=== PATIENT | male | born 1975 | race Caucasian/White ===

== ENCOUNTER 2024-05-12 18:59 | Inpatient (IN) | payer BC, SELFPAY ==
--- NOTE | ~2024-05-12 | CT_ITS ---
EXAMINATION: CT ABDOMEN AND PELVIS WITHOUT CONTRAST CLINICAL INFORMATION: l flank pain. COMPARISON: No pertinent prior studies are available for comparison. TECHNIQUE: Multidetector volumetric imaging was performed from the superior aspect of the liver through the pubic symphysis without contrast per renal stone protocol. Sagittal and coronal reformatted images were obtained on the technologist workstation. This CT examination was performed using dose optimization techniques as appropriate, variously including the following: *Automated exposure control *Adjustment of mA and/or kV according to patient size (this includes techniques or standardized protocols for targeted exams where dose is matched to indication/reason for exam; i.e. extremities or head) *Use of iterative reconstruction technique RF of note, the patient was extremely uncooperative for the study and would not hold still. Scan was performed twice with significant motion artifact both times. DLP: 539 mGy-cm. FINDINGS: LUNG BASES: The visualized lung bases are unremarkable. LIVER, GALLBLADDER, BILIARY TREE: The non-contrast liver is normal in size, shape, and attenuation. No focal hepatic lesion or biliary ductal dilatation is present. The gallbladder is unremarkable with no evidence of radiopaque gallstones, gallbladder wall thickening, or obvious pericholecystic inflammatory changes. PANCREAS: Unremarkable. SPLEEN: Unremarkable. ADRENAL GLANDS: Unremarkable. KIDNEYS AND URETERS: The kidneys are normal in size, shape, and attenuation. No hydronephrosis, hydroureter, or perinephric stranding. No calculi. BLADDER: Unremarkable. GASTROINTESTINAL TRACT: The small and large bowel are unremarkable. The appendix is unremarkable. ABDOMINAL WALL: No significant hernia is appreciated. LYMPHOVASCULAR STRUCTURES: No lymphadenopathy. The aorta is unremarkable.. PELVIC VISCERA: Unremarkable. OSSEUS STRUCTURES: Unremarkable. CT/CT abdomen pelvis wo IV con IMPRESSION: Examination limited due to patient significant motion on 2 separate attempts at scanning. No acute intra-abdominal process seen however.
--- NOTE | ~2024-05-12 | MR_ITS ---
EXAMINATION: MR BRAIN WITHOUT AND WITH CONTRAST CLINICAL INFORMATION: Altered mental status. Encephalitis. COMPARISON: CT head from 05/12/2024. TECHNIQUE: MRI of the brain was obtained using routine sequences without and following the administration of 5.5 mL of Gadavist intravenous contrast. FINDINGS: No focal restricted diffusion is demonstrated to suggest acute or subacute cerebral ischemia. No evidence of acute or chronic hemorrhagic products on heme-sensitive imaging. Mild scattered nonspecific periventricular and deep white matter T2 FLAIR hyperintensities. The ventricles are normal in morphology and size. No abnormal mass effect. No midline shift. Normal appearance of the pituitary gland. Normal positioning of the cerebellar tonsils. Normal arterial and venous vascular flow voids are present. No abnormal contrast enhancement. Normal, homogeneous marrow signal. Mucus retention cyst within the right maxillary sinus. Mild mucosal thickening of the remaining paranasal sinuses. No signal abnormalities within the mastoids. MR/MR head/brain wo/w con IMPRESSION: 1. No acute intracranial abnormalities. No abnormal intracranial enhancement. 2. Mild nonspecific white matter changes.
--- NOTE | ~2024-05-12 | CT_ITS ---
EXAMINATION: CT HEAD WITHOUT CONTRAST CLINICAL INFORMATION: AMS. COMPARISON: None available. TECHNIQUE: Contiguous axial imaging was performed from the skull base to vertex without intravenous administration of contrast. This CT examination was performed using dose optimization techniques as appropriate, variously including the following: *Automated exposure control *Adjustment of mA and/or kV according to patient size (this includes techniques or standardized protocols for targeted exams where dose is matched to indication/reason for exam; i.e. extremities or head) *Use of iterative reconstruction technique DLP: 636 mGy-cm FINDINGS: There is no acute intra-axial, extra-axial bleed, masses or midline shift. There is no acute infarction in evolution. There is no edema. Edward to white matter differentiation is maintained normal. The lateral ventricles are symmetrical in size and configuration without enlargement. Bone windows reveal no calvarial abnormality. There is no scalp soft tissue abnormality. There is small polyp or retention cyst right maxillary sinus. CT/CT head/brain wo IV con IMPRESSION: No acute intracranial process seen.
--- NOTE | 2024-05-12 19:07 | ED_ITS ---
HPI - Abdominal Pain General Chief Complaint: Abdominal Pain Stated Complaint: ABD PAIN,HEADACHE,DISORIENTED Time Seen by Provider: 05/12/24 19:06 Source: family and EMS Mode of arrival: EMS Limitations: altered mental status History of Present Illness ED Provider: marquez TERRELL narrative: Patient is 49 years old with no significant past medical history does have chronic cramps went to work today came home was sitting on the steps of the house complaining of severe cramps and pain all over the body had difficulty in walking no nausea no vomiting no diarrhea also complaining of headache EMS found him confused no seizure activities no drugs use no alcohol use Related Data Allergies Allergy/AdvReac Type Severity Reaction Status Date / Time No Known Allergies Allergy Verified 05/12/24 19:21 Review of Systems Review of Systems Yes Unobtainable due to mental status [facility] Social History Social History Advance Directives: No Advance Directives Information Provided: No Physical Exam ED Vital Signs: Vital Signs - 24 hr 05/12/24 19:15 05/12/24 19:17 Temperature 97.6 F 97.6 F Pulse Rate 71 71 Respiratory Rate 28 H 21 H Blood Pressure 149/69 H 149/69 H Pulse Oximetry 100 100 Oxygen Delivery Method Room Air Room Air BMI result Body Mass Index 20.0 Appearance: Alert. Confused. No acute distress. Acting delirious and weird asking the same question again and again Eyes: PERRLA, No Nystagmus ENT: Pharynx normal. Oral Mucosa moist Neck: Normal inspection. Neck supple. CVS: Normal heart rate and rhythm. Pulses normal. Respiratory: No respiratory distress. Equal air entry bilateral, no wheezing/rales/rhonchi Abdomen: Soft and nontender. Bowel sounds are present, no mass palpable, no CVA tenderness Skin: Skin warm and dry. Normal skin color. Normal skin turgor. Extremities: No lower extremity edema. No calf tenderness Neuro: Alert but confused No motor deficit. No sensory deficit.No cerebellar signs , cranial nerves II-XII intact Procedures Lumbar Puncture Time Out Performed: Yes Patient Position: upright Skin Prep: Povidone-Iodine 1% Local Anesthetic: lidocaine 1% Amount of anesthesia used (mL): 5 Spinal Needle Gauge: Other (25G) Interspace Used: L4-L5 Fluid Initially Obtained: clear Complications: none Medical Decision Making Medical Decision Making [facility] Narrative: Patient with acute confusion etiology not very clear differential diagnosis includes encephalitis/meningitis/metabolic encephalopathy/substance abuse/brain tumor/kidney stone spinal tap was done and fluid was sent for evaluation prophylactic antibiotics started fluids were given Differential Diagnosis Differential Diagnoses: The differential diagnosis associated with the presentation includes Admission/Observation Consideration of admission/observation: Escalation of care including admission/observation considered Consult Healthcare Provider Management of the patient was discussed with: Hospitalist Lab Data [facility] Lab Attestation statement: I reviewed the patient's lab results. 05/12/24 19:30 05/12/24 19:30 Labs: Lab Results 05/12/24 05/12/24 05/12/24 Range/Units 19:30 20:47 23:38 WBC 14.4 H (4.8-10.8) X10*3/uL RBC 4.79 (4.60-5.80) X10*6/uL Hgb 15.1 (14.0-18.0) g/dl Hct 42.7 (42.0-52.0) % MCV 89.1 (80.0-98.0) fL MCH 31.5 (27.0-33.0) pg MCHC 35.4 (31.0-36.0) g/dl RDW 14.6 (11.0-16.0) % Plt Count 274 (160-400) X10*3/uL MPV 10.8 (9.4-12.4) fL Immature Gran % (Auto) 0.4 (0.0-0.4) % Neut % (Auto) 82.7 H (45-73) % Lymph % (Auto) 10.0 L (20-40) % Lee % (Auto) 6.3 (2-11) % Eos % (Auto) 0.1 (0-4) % Baso % (Auto) 0.5 (0-2) % Lymph # (Auto) 1.4 (1.2-4.9) X10*3/uL Lee # (Auto) 0.9 (0.1-1.2) X10*3/uL Eos # (Auto) 0.0 (0.0-0.4) X10*3/uL Baso # (Auto) 0.1 (0.0-0.2) X10*3/uL Abs Immat Gran (auto) 0.06 H (0.00-0.03) X10*3/uL Absolute Neuts (auto) 11.9 H (2.0-8.3) x10*3/uL Absolute Nucleated RBC 0.000 (0.0-0.012) X10*3/uL Nucleated RBC % (auto) 0.0 (0.0-0.2) /100WBC Sodium 136 (135-145) mmol/L Potassium 4.0 (3.3-5.1) mmol/L Chloride 103 (96-108) mmol/L Carbon Dioxide 14 L (22-29) mmol/L Anion Gap 23 H (12-20) BUN 27 H (9-16) mg/dL Creatinine 1.24 (0.5-1.4) mg/dL Estim Creat Clear Calc 58.5 Estimated GFR > 60 Random Glucose 137 H (60-115) mg/dL Lactic Acid 3.0 H* (0.5-2.0) mmol/L Lactic Acid F/U @ 2Hr 1.1 (0.5-2.0) mmol/L Calcium 11.2 H (8.4-10.2) mg/dL Magnesium 2.5 (1.6-2.6) mg/dL Total Bilirubin 0.6 (0.0-1.0) mg/dL AST 54 H (5-37) U/L ALT 58 H (0-40) U/L Alkaline Phosphatase 91 (39-117) U/L Total Creatine Kinase 1545 H (38-174) U/L C-Reactive Protein 1.06 H (< or = 0.50) mg/dL Total Protein 9.8 H (6.5-8.0) g/dL Albumin 5.5 H (3.5-5.0) g/dL Lipase 26 (8-78) U/L Urine Color Yellow Urine Appearance Clear Urine pH 5.5 (5.0-9.0) Ur Specific [place] 1.010 (1.005-1.025) Urine Protein 30 (1+) H (Neg-Trace) mg/dL Urine Glucose (UA) Negative (Negative) mg/dL Urine Ketones 40 (Negative) mg/dL Urine Blood Moderate (2+) H (Negative) Urine Nitrite Negative (Negative) Ur Leukocyte Esterase Negative (Negative) Urine RBC 0-2 (0-2) /HPF Urine WBC 0-5 (0-5) /HPF Ur Squamous Epith Cells 0-2 (0-2) /HPF Urine Bacteria None Seen (None Seen) Hyaline Casts 0-2 (0-2) /LPF Urine Opiates Screen POSITIVE H (Not Detect) Ur Buprenorphine Scrn Not Detected (Not Detect) ng/mL Ur Oxycodone Screen Not Detected (Not Detect) ng/mL Urine Methadone Screen Not Detected (Not Detect) ng/mL Urine Fentanyl Screen Not Detected (Not Detect) Ur Barbiturates Screen Not Detected (Not Detect) Ur Phencyclidine Scrn Not Detected (Not Detect) Ur Amphetamines Screen Not Detected (Not Detect) U Benzodiazepines Scrn Not Detected (Not Detect) Urine Cocaine Screen Not Detected (Not Detect) U Marijuana (THC) Screen POSITIVE H (Not Detect) Independent Interpretation I performed an independent interpretation of an: CT Scan Radiology Impression Discussion of test interpretation with radiology: I have reviewed the radiologist's reading. Medications Administered Discontinued Medications Generic Name Dose Route Start Last Admin Trade Name Freq PRN Reason Stop Dose Admin Sodium Chloride 1,000 mls @ 999 mls/hr 05/12/24 19:22 05/12/24 21:00 Ns IV 05/12/24 20:22 Infused .Q1H1M ONE Infusion Ceftriaxone Sodium 1 gm/ 50 mls @ 100 mls/hr 05/12/24 21:12 05/12/24 22:58 Sodium Chloride IV 05/12/24 21:41 Infused ONCE ONE Infusion Sodium Chloride 1,000 mls @ 999 mls/hr 05/12/24 22:23 05/12/24 23:30 Ns IV 05/12/24 23:23 Infused .Q1H1M ONE Infusion Ketorolac Tromethamine 30 mg 05/12/24 19:22 05/12/24 19:35 Ketorolac Tromethamine 30 Mg/Ml Vial IVPUSH 05/12/24 19:23 30 mg ONCE ONE Administration Morphine Sulfate 4 mg 05/12/24 20:14 05/12/24 20:17 Morphine Sulfate 4 Mg/Ml Cartridge IVPUSH 05/12/24 20:15 4 mg ONCE ONE Administration Protocol Morphine Sulfate 4 mg 05/12/24 22:24 05/12/24 22:28 Morphine Sulfate 4 Mg/Ml Cartridge IVPUSH 05/12/24 22:25 4 mg ONCE ONE Administration Protocol Ondansetron HCl 4 mg 05/12/24 20:14 05/12/24 20:17 Ondansetron Hcl 4 Mg/2 Ml Vial IVPUSH 05/12/24 20:15 4 mg ONCE ONE Administration Critical Care Time Critical Care Time Critical Care Time: Yes Total Critical Care Time: 65 Attestation: The patient was critically ill with a high probability of imminent or life threatening deterioration. I spent greater than 70???minutes of discontinuous time evaluating the patient,delivering critical care at the bedside, discussing and evaluating pertinent data with consultants. Critical care time does not include time spent performing separately billable procedures or teaching. Total time spent performing critical care was 65???minutes. Discharge Plan Discharge Clinical Impression: Acute encephalopathy Patient Disposition: Admitted As Inpatient
[2024-05-12 19:14] VITALS: BP 130/62; PULSE 76; O2SAT 92
[2024-05-12 19:15] VITALS: BP 149/69; PULSE 71; RESP 28; TEMP 36.4; O2SAT 100
[2024-05-12 19:17] VITALS: BP 149/69; PULSE 71; RESP 21; TEMP 36.4; O2SAT 100
--- NOTE | 2024-05-12 19:18 | MHC.EDTECH ---
Patient BIBA,changed into hospital attire,vitals taken and placed on the visitor services assistant,call mckeon in reach
[2024-05-12 19:34] LABS: MANUAL DIFF FLAG NO
[2024-05-12] MEDS: 0.9 % Sodium Chloride 1,000 ML 999 ML IV ×2 (19:34→22:29)
[2024-05-12] MEDS: Ketorolac Tromethamine 30 MG/ML VIAL IVPUSH (19:35)
[2024-05-12 19:42] LABS: Basophils Absolute Auto 0.1 X10*3/uL (0.0-0.2); Basophils Percent Auto 0.5 % (0-2); Eosinophils Percent Auto 0.1 % (0-4); Hematocrit 42.7 % (42.0-52.0); Hemoglobin 15.1 g/dl (14.0-18.0); Imm Gran Abs Auto 0.06 X10*3/uL (0.00-0.03); Imm Gran Pct Auto 0.4 % (0.0-0.4); Lymphocytes Absolute Auto 1.4 X10*3/uL (1.2-4.9); Mean Corpuscular HGB Conc 35.4 g/dl (31.0-36.0); Mean Corpuscular Hemoglobin 31.5 pg (27.0-33.0); Mean Corpuscular Volume 89.1 fL (80.0-98.0); Mean Platelet Volume 10.8 fL (9.4-12.4); Monocytes Absolute Auto 0.9 X10*3/uL (0.1-1.2); Monocytes Percent Auto 6.3 % (2-11); Neutrophils Absolute Auto 11.9 x10*3/uL (2.0-8.3); Neutrophils Percent Auto 82.7 % (45-73); Platelet Count 274 X10*3/uL (160-400); Red Blood Count 4.79 X10*6/uL (4.60-5.80); Red Cell Distribution Width 14.6 % (11.0-16.0); White Blood Count 14.4 X10*3/uL (4.8-10.8)
[2024-05-12 20:14] LABS: Alanine Aminotransferase 58 U/L (0-40); Albumin Level 5.5 g/dL (3.5-5.0); Alkaline Phosphatase 91 U/L (39-117); Anion Gap 23 (12-20); Aspartate Amino Transferase 54 U/L (5-37); Bilirubin Total 0.6 mg/dL (0.0-1.0); Blood Urea Nitrogen 27 mg/dL (9-16); Calcium 11.2 mg/dL (8.4-10.2); Carbon Dioxide 14 mmol/L (22-29); Chloride 103 mmol/L (96-108); Creatinine Clr Calc Pharmacy 58.5; Estimated Glomerular Filt Rate > 60; Glucose Random 137 mg/dL (60-115); Lipase 26 U/L (8-78); Sodium 136 mmol/L (135-145); Total Protein 9.8 g/dL (6.5-8.0)
[2024-05-12] MEDS: Morphine Sulfate 4 MG/ML CARTRIDGE IVPUSH ×2 (20:17→22:28)
[2024-05-12] MEDS: ondansetron HCL 4 MG/2 ML VIAL IVPUSH (20:17)
--- NOTE | 2024-05-12 20:48 | MHC.EDTECH ---
Lactic drawn and sent to lab.
[2024-05-12] MEDS: cefTRIAXone sodium 1 GM in 0.9 % Sodium Chloride 50 ML IV (22:28)
[2024-05-12 22:48] LABS: C Reactive Protein 1.06 mg/dL (< or = 0.50); Magnesium 2.5 mg/dL (1.6-2.6)
[2024-05-12 22:54] LABS: Reflex Lactate? Lactic Acid Added
[2024-05-12 23:47] LABS: Appearance Urine Clear; Color Urine Yellow; Glucose Urine UA Negative (Negative); Leukocyte Esterase Urine Negative (Negative); Nitrite Urine Negative (Negative); PH 5.5 (5.0-9.0); UMIC TRIGGER UACC YES; Urine Blood Moderate (2+) (Negative); Urine Ketones 40 mg/dL (Negative); Urine Protein 30 (1+) mg/dL (Neg-Trace)
[2024-05-12 23:54] LABS: Bacteria Urine None Seen (None Seen); Hyaline Casts Urine 0-2 /LPF (0-2); RBC Urine 0-2 /HPF (0-2); Squamous Epithelial Cell Urine 0-2 /HPF (0-2); WBC Urine 0-5 /HPF (0-5)
--- NOTE | 2024-05-12 23:55 | PC.NURSE ---
pt no longer reports pain however he is still very confused. answers all questions with what do you mean? ; where am I? ; has not answered any question appropriately. pt also repeatedly stating I don't know what you mean. I just opened my eyes. MD is at bedside to reassess patient.
[2024-05-12 23:58] LABS: Amphetamine Screen Urine Not Detected (Not Detect); Barbiturates, Urine Not Detected (Not Detect); Benzodiazepines Screen Urine Not Detected (Not Detect); Buprenorphine Scr Not Detected (Not Detect); Cannabinoid Screen Urine POSITIVE (Not Detect); Cocaine Screen Urine Not Detected (Not Detect); Fentanyl, urine Not Detected (Not Detect); Methadone Screen, Urine Not Detected (Not Detect); Opiate Screen Urine POSITIVE (Not Detect); Oxycodone Screen Urine Not Detected (Not Detect); Phencyclidine Screen Urine Not Detected (Not Detect); ~Lactic Acid-LAB USE ONLY 1.1 mmol/L (0.5-2.0)
[2024-05-13] VITALS (7 sets, daily range): BP systolic 106–159; BP diastolic 52–72; PULSE 55–84; RESP 12–16; TEMP 36.2–37.4; O2SAT 96–98; BMI 21.3
--- NOTE | 2024-05-13 | EEG_ITS ---
FINDINGS: Waking background activity consists of low voltage posterior 7 to 8 hertz alpha intermixed with low voltage fast frequencies anteriorly. Throughout the record, theta slowing is seen from the temporal regions in the 5 to 6 hertz range at moderate voltage. Sometimes with slightly sharp configuration. Photic stimulation produces symmetrical photic driving responses. Hyperventilation was omitted. IMPRESSION: This EEG is considered abnormal due to bitemporal slowing occasionally with sharp transient suggestive of a bilateral encephalopathic process involving the temporal regions. No clearly epileptiform discharges are seen. Clinical correlation is suggested. MD BONNIE Vanegas/FRANCHESKA / [phone]
--- NOTE | 2024-05-13 00:38 | PM.IMHP ---
History of Present Illness Date of Service: 05/13/24 Chief Complaint: AMS This is a 49-year-old male with no pertinent past medical history and not on prescription medications who was brought the emergency department for evaluation of altered mentation. History was obtained with the help of significant other at bedside. As per the fiancee, patient returned home from work and was complaining of headache and cramps. Patient was complaining of diffuse cramps all over. The fiancee called 911 and patient was found to be altered as per EMS. In the time of my evaluation, patient is only oriented to self. He does not know that he has in the hospital. Patient does not remember if he went to work today or what he does for work. Is only complaining of headache. No sick contacts. No recent hiking or tick bite. No fever, chills, nausea, vomiting or diarrhea. Patient does not take any prescription medications. Only smokes marijuana. No IV drug use. No alcohol use. Unable to obtain complete review of systems. In the emergency department, WBC 14.4, lactic acid 3 and CK 1545. Lumbar puncture was performed in the ER. CT head and CT abdomen without any gait abnormality Review of Systems Review of Systems: Yes Unobtainable due to mental status PMFSH Pertinent family history: No family history of early CAD Social History Patient Tobacco Use Status: Tobacco use Unknown Advance Directives: No Advance Directives Information Provided: No Nutrition Risks: No Nutritional Risk Meds Allergies Allergy/AdvReac Type Severity Reaction Status Date / Time No Known Allergies Allergy Verified 05/12/24 19:21 Physical Exam Vital Signs and Narrative: Vital Signs: Last Vital Signs Temp 97.6 F 05/12/24 19:17 Pulse 71 05/12/24 19:17 Resp 21 H 05/12/24 19:17 BP 149/69 H 05/12/24 19:17 Pulse Ox 100 05/12/24 19:17 O2 Del Method Room Air 05/12/24 19:17 BMI result Body Mass Index 20.0 Middle-aged male lying in bed in no distress Neck supple, no JVD Regular rate and rhythm, S1-S2 heard Regular breath sounds bilaterally, no wheezing or crackles appreciated Abdomen soft nontender, no guarding, no rigidity Patient is awake, alert and oriented to self, disoriented to place, time and person ; no focal motor weakness Psych: Anxious No pedal edema Results Labs 05/13/24 04:11 05/12/24 19:30 Labs: Laboratory Results - last 24 hr 05/12/24 05/12/24 05/12/24 19:30 20:47 23:38 MCV 89.1 MCH 31.5 MCHC 35.4 RDW 14.6 Plt Count 274 MPV 10.8 Immature Gran % (Auto) 0.4 Neut % (Auto) 82.7 H Lymph % (Auto) 10.0 L [place] % (Auto) 6.3 Eos % (Auto) 0.1 Baso % (Auto) 0.5 Lymph # (Auto) 1.4 [place] # (Auto) 0.9 Eos # (Auto) 0.0 Baso # (Auto) 0.1 Abs Immat Gran (auto) 0.06 H Absolute Neuts (auto) 11.9 H Absolute Nucleated RBC 0.000 Nucleated RBC % (auto) 0.0 Anion Gap 23 H Estim Creat Clear Calc 58.5 Estimated GFR > 60 Random Glucose 137 H Lactic Acid 3.0 H* Lactic Acid F/U @ 2Hr 1.1 Calcium 11.2 H Magnesium 2.5 Total Bilirubin 0.6 AST 54 H ALT 58 H Alkaline Phosphatase 91 Total Creatine Kinase 1545 H C-Reactive Protein 1.06 H Total Protein 9.8 H Albumin 5.5 H Lipase 26 Urine Color Yellow Urine Appearance Clear Urine pH 5.5 Ur Specific [place] 1.010 Urine Protein 30 (1+) H Urine Glucose (UA) Negative Urine Ketones 40 Urine Blood Moderate (2+) H Urine Nitrite Negative Ur Leukocyte Esterase Negative Urine RBC 0-2 Urine WBC 0-5 Ur Squamous Epith Cells 0-2 Urine Bacteria None Seen Hyaline Casts 0-2 Urine Opiates Screen POSITIVE H Ur Buprenorphine Scrn Not Detected Ur Oxycodone Screen Not Detected Urine Methadone Screen Not Detected Urine Fentanyl Screen Not Detected Ur Barbiturates Screen Not Detected Ur Phencyclidine Scrn Not Detected Ur Amphetamines Screen Not Detected U Benzodiazepines Scrn Not Detected Urine Cocaine Screen Not Detected U Marijuana (THC) Screen POSITIVE H Imaging Radiologist's Impressions: Impressions Abdomen/Pelvis CT 05/12/24 20:01 IMPRESSION: Examination limited due to patient significant motion on 2 separate attempts at scanning. No acute intra-abdominal process seen however. Head CT 05/12/24 20:39 IMPRESSION: No acute intracranial process seen. Assessment and Plan (1) Acute encephalopathy: Status: Acute Plan This is a 49-year-old male with no pertinent past medical history and not on prescription medications who was brought the emergency department for evaluation of altered mentation. #. Acute encephalopathy: Unclear etiology. UDS negative. Lumbar puncture performed and initial CSF results not concerning for acute bacterial meningitis. Initiating empiric IV acyclovir. Meningitis/encephalitis PCR panel pending. Consulting Neurology, appreciate assistance. Obtaining procalcitonin #. SIRS: Resuscitated with IV crystalloids. Given empiric IV ceftriaxone in the ER. Blood culture obtained #. Acute lactic acidosis due to sepsis. Resolved #. Mild rhabdomyolysis: On IV crystalloid resuscitation DVT prophylaxis: Lovenox Full code Admit as inpatient and will require two night minimum hospital stay for close monitoring of mentation, IV acyclovir (as above), which is not possible in a lesser acute setting. Specialist consult pending Quality Stroke Does the patient have a stroke diagnosis?: No VTE Prior VTE?: No VTE Risk Level:: Medical - moderate - high VTE Device Contraindication: Treatment Not Indicated VTE Drug Contraindication: N/A - Med Ordered
[2024-05-13 01:47] LABS: CSF Appearance Clear, Colorless; Glucose CSF 73 mg/dL; Total Protein CSF 51.1 mg/dL (15-45)
[2024-05-13 01:48] LABS: CSF Tube # 2
[2024-05-13 02:01] LABS: Appearance CSF CLEAR; CSF Tube # 1; CSF Tube # 4; Color CSF COLORLESS; Red Blood Cell CSF 0 MM*3; White Blood Cell CSF 3 MM*3
[2024-05-13 02:02] LABS: Color CSF COLORLESS; Red Blood Cell CSF 0 MM*3; White Blood Cell CSF 7 MM*3
[2024-05-13 02:21] LABS: CSF Monos 15 %; Lymphocytes CSF 10 %; Neutrophils CSF 75 %
[2024-05-13 02:22] LABS: CSF Monos 15 %; Lymphocytes CSF 35 %; Neutrophils CSF 50 %
[2024-05-13 02:47] LABS: Cryptococcus neoformans/gattii Not Detected (Not Detect.); Enterovirus Not Detected (Not Detect.); Escherichia coli K1 Not Detected (Not Detect.); Haemophilus influenzae Not Detected (Not Detect.); Herpes simplex virus 1 Not Detected (Not Detect.); Herpes simplex virus 2 Not Detected (Not Detect.); Human herpesvirus 6 Not Detected (Not Detect.); Human parechovirus Not Detected (Not Detect.); Listeria monocytogenes Not Detected (Not Detect.); Neisseria meningitidis Not Detected (Not Detect.); Streptococcus agalactiae Not Detected (Not Detect.); Streptococcus pneumoniae Not Detected (Not Detect.); Varicella zoster virus Not Detected (Not Detect.)
[2024-05-13 03:16] LABS: Procalcitonin 0.08 ng/mL
[2024-05-13 04:56] LABS: MANUAL DIFF FLAG NO
[2024-05-13 05:00] LABS: Basophils Absolute Auto 0.1 X10*3/uL (0.0-0.2); Basophils Percent Auto 0.4 % (0-2); Eosinophils Percent Auto 0.1 % (0-4); Hematocrit 38.2 % (42.0-52.0); Hemoglobin 13.5 g/dl (14.0-18.0); Imm Gran Abs Auto 0.05 X10*3/uL (0.00-0.03); Imm Gran Pct Auto 0.4 % (0.0-0.4); Lymphocytes Absolute Auto 2.3 X10*3/uL (1.2-4.9); Lymphocytes Percent Auto 16.8 % (20-40); Mean Corpuscular HGB Conc 35.3 g/dl (31.0-36.0); Mean Corpuscular Hemoglobin 32.1 pg (27.0-33.0); Monocytes Absolute Auto 1.5 X10*3/uL (0.1-1.2); Monocytes Percent Auto 10.8 % (2-11); Neutrophils Absolute Auto 9.7 x10*3/uL (2.0-8.3); Neutrophils Percent Auto 71.5 % (45-73); Platelet Count 252 X10*3/uL (160-400); Red Cell Distribution Width 14.8 % (11.0-16.0); White Blood Count 13.6 X10*3/uL (4.8-10.8)
[2024-05-13 05:24] LABS: Anion Gap 12 (12-20); Blood Urea Nitrogen 19 mg/dL (9-16); Carbon Dioxide 18 mmol/L (22-29); Chloride 110 mmol/L (96-108); Creatinine Clr Calc Pharmacy 85.4; Estimated Glomerular Filt Rate > 60; Glucose Random 98 mg/dL (60-115); Potassium 4.1 mmol/L (3.3-5.1); Sodium 136 mmol/L (135-145)
[2024-05-13] MEDS: Lactated Ringers 1,000 ML 100 ML IVCONT (06:09)
[2024-05-13 08:43] LABS: Folate 12.7 ng/mL (> or = 4.0); Vitamin B12 431 pg/mL (200-900)
--- NOTE | 2024-05-13 09:09 | PHA.MEDREC ---
Pharmacy Consult ? Medication Reconciliation Pharmacy has completed the medication reconciliation.
--- NOTE | 2024-05-13 09:38 | PC.NURSE ---
pt alert to person/place, bus monitor intact sinus yoly 50s, vitals otherwise stable, lungs clear/diminished, ivf running per order, call mckeon within reach, will continue to monitor
--- NOTE | 2024-05-13 10:07 | P.CNNE_ITS ---
History of Present Illness Data of Consult Service Date: 05/13/24 Primary Care Provider: Unknown Physician HPI Reason for consult: Altered mental status This is a 49-year-old male with no pertinent past medical history, on no prescription medications who was brought the emergency department for evaluation of altered mentation. History was obtained thru his significant other at bedside, who reported that the patient returned home from work and was complaining of headache and Generalized muscle cramps. Patient was complaining of diffuse cramps all over. The fiancee called 911 and patient was found to be altered as per EMS, And became very agitated so that police had to be called. He was completely confused and disoriented. In the ER he was only oriented to self. He does not know that he has in the hospital. Patient does not remember if he went to work And where he works. He does powder coating of metals.His only complaint was severe headaches which has now resolved. He has not had any fever or any other illness. No toxic exposure at work. No sick contacts. No recent hiking or tick bite. No fever, chills, nausea, vomiting or diarrhea. Only smokes marijuana. No IV drug use. No alcohol use. CT brain negative, Spinal fluid with slightly elevated protein of 51 and 7 WBC with 75%polys. C&S pending. PCR negative. About 20 years ago he had a bout of viral meningitis [facility] Social History Social History Patient Tobacco Use Status: Tobacco use Unknown Advance Directives: No Advance Directives Information Provided: No Nutrition Risks: No Nutritional Risk Meds Allergies Allergy/AdvReac Type Severity Reaction Status Date / Time No Known Allergies Allergy Verified 05/12/24 19:21 Active Medications: Current Medications Acetaminophen (Acetaminophen 325 Mg Tablet) 650 mg PO Q6H PRN PRN Reason: Pain, Mild (Pain Scale 1-3), fever or headache Calcium Carbonate (Calcium Carbonate 750 Mg Tab.Chew) 750 mg PO Q4H PRN PRN Reason: Heartburn Enoxaparin Sodium (Enoxaparin Sodium 40 Mg/0.4 Ml Syringe) 40 mg SUBCUT Q24H [facility] Acyclovir Sodium 562.45 mg/ (Sodium Chloride) 111.249 mls @ 111.249 mls/hr IV Q8H [facility] Last Infusion: 05/13/24 06:09 Dose: Infused Lactated Ringer's (Lr) 1,000 mls @ 100 mls/hr IVCONT .Q10H ONE Stop: 05/13/24 15:14 Last Admin: 05/13/24 06:09 Dose: 100 mls/hr Magnesium Hydroxide (Milk Of Magnesia 30 Ml Oral.Susp) 30 ml PO DAILY PRN PRN Reason: Constipation Melatonin (Melatonin 3 Mg Tablet) 6 mg PO BEDTIME PRN PRN Reason: Insomnia Ondansetron HCl (Ondansetron Hcl 4 Mg/2 Ml Vial) 4 mg IVPUSH Q4H PRN PRN Reason: Nausea and Vomiting Sodium Chloride (0.9 % Sodium Chloride Flush 3 Ml Syringe) 3 ml IVFLUSH QSHIFT [facility] Last Admin: 05/13/24 09:29 Dose: Not Given Home Medications ?Medication ?Instructions ?Recorded ?Confirmed ?Last Taken ?Type omeprazole 20 mg capsule,delayed 20 mg PO DAILY@0630 05/13/24 05/13/24 Unknown History release Physical Exam 2 Vital Signs: Vital Signs: Last Vital Signs Temp 97.9 F 05/13/24 05:14 Pulse 66 05/13/24 05:14 Resp 16 05/13/24 05:14 BP 106/52 L 05/13/24 05:14 Pulse Ox 97 05/13/24 05:14 O2 Del Method Room Air 05/13/24 05:14 BMI result Body Mass Index 20.0 Neuro: Other: He is alert, pleasant and cooperative. He has some difficulty understanding commands. He knows his name. He could not tell me his age. He could not tell me the month or the year, but did guess that it was Saturday, correctly. He could identify his significant other. He could not tell me what city he lives in. He could not tell me the name of the place that he works. He was having obvious difficulties with processing information. His cranial nerves II through XII are normal. Muscle tone, and strength were normal. Plantar response are flexor. Neck was supple. Results Labs 05/13/24 04:11 05/13/24 04:11 Labs: Short CBC 05/12/24 05/13/24 Range/Units 19:30 04:11 WBC 14.4 H 13.6 H (4.8-10.8) X10*3/uL Hgb 15.1 13.5 L (14.0-18.0) g/dl Hct 42.7 38.2 L (42.0-52.0) % Plt Count 274 252 (160-400) X10*3/uL BMP 05/12/24 05/13/24 19:30 04:11 Sodium 136 136 Potassium 4.0 4.1 Chloride 103 110 H Carbon Dioxide 14 L 18 L BUN 27 H 19 H Creatinine 1.24 0.85 Calcium 11.2 H 9.0 D Cardiac Enzymes 05/12/24 Range/Units 19:30 Total Creatine Kinase 1545 H (38-174) U/L Liver Function 05/12/24 Range/Units 19:30 Total Bilirubin 0.6 (0.0-1.0) mg/dL AST 54 H (5-37) U/L ALT 58 H (0-40) U/L Alkaline Phosphatase 91 (39-117) U/L Albumin 5.5 H (3.5-5.0) g/dL Urine 05/12/24 Range/Units 23:38 Urine Color Yellow Urine Appearance Clear Urine pH 5.5 (5.0-9.0) Ur Specific [place] 1.010 (1.005-1.025) Urine Protein 30 (1+) H (Neg-Trace) mg/dL Urine Glucose (UA) Negative (Negative) mg/dL Microbiology Microbiology Results: Microbiology 05/13/24 01:06 Cerebrospinal Fluid Gram Stain - Final 05/13/24 01:06 Cerebrospinal Fluid CSF Examination - Final 05/13/24 01:06 Cerebrospinal Fluid Fluid Description - Final Assessment and Plan (1) Viral encephalitis: Status: Acute His altered mental status is most consistent with an acute viral encephalitis especially with the presence of mildly elevated white cell count in the spinal fluid and borderline elevated CSF proteins. His PCR is a negative. Cultures are pending. Recommendations: Antiviral coverage for herpes encephalitis pending culture and sensitivity. MRI of the brain. EEG Procedures Date of Service Date of Service: 05/13/24
--- NOTE | 2024-05-13 12:16 | MHC.EDTECH ---
pt vital signs checked at 1200, pt c/o headache 02/18, RN aware, call mckeon within reach.
--- NOTE | 2024-05-13 13:30 | PC.NURSE ---
pt to eeg
[2024-05-13 13:44] LABS: HIV Num 1 6.35 S/CO (0.00-0.99)
--- NOTE | 2024-05-13 14:27 | PC.NURSE ---
pt returned from EEG, pt is alert to person/place but didnt remember his daughter had been at bedside prior to him going to eeg, iv antiviral started per order, phototypesetting equipment monitor intact, call mckeon within reach, will continue to monitor
[2024-05-13 14:46] LABS: HIV AB/AG Nonreactive (Nonreactive); HIV Num 2 0.04 S/CO; HIV Num 3 0.04 S/CO
[2024-05-13] MEDS: Acetaminophen 325 MG TABLET 650 MG PO (15:58)
[2024-05-13] MEDS: 0.9 % Sodium Chloride Flush 3 ML SYRINGE IVFLUSH (16:01)
--- NOTE | 2024-05-13 16:01 | PC.NURSE ---
pt medicated for 3/10 headache, family at bedside, call mckeon within reach, will continue to monitor
--- NOTE | 2024-05-13 16:20 | HO.PM.IMPN ---
Subjective Subjective Date of Service: 05/13/24 Interval History: somewhat confused per mild headache, no neck stiffness, no fever no tick exposure, no toxic exposure, no drugs other than THC Review of Systems Review of Systems: Yes all other systems are reviewed and are negative Physical Exam Vital Signs: Vital Signs: Last Vital Signs Temp 98.5 F 05/13/24 14:49 Pulse 65 05/13/24 14:49 Resp 12 05/13/24 14:49 BP 154/67 H 05/13/24 14:49 Pulse Ox 97 05/13/24 14:49 O2 Del Method Room Air 05/13/24 14:49 BMI result Body Mass Index 20.0 Gen: in no acute distress HEENT: sclera anicteric, moist mucus membranes Neck: supple, no adenopathy Lungs: clear to auscultation bilaterally Heart: regular rate and rhythm, no murmurs Abd: soft, non-tender, non-distended Ext: no edema Skin: warm/well-perfused Neuro: alert and oriented to self + place + day but not month or year, no focal weakness Psych: appropriate affect Objective Data Active Medications Acetaminophen (Acetaminophen 325 Mg Tablet) 650 mg PO Q6H PRN PRN Reason: Pain, Mild (Pain Scale 1-3), fever or headache Last Admin: 05/13/24 15:58 Dose: 650 mg Documented By: HERMINIO Calcium Carbonate (Calcium Carbonate 750 Mg Tab.Chew) 750 mg PO Q4H PRN PRN Reason: Heartburn Enoxaparin Sodium (Enoxaparin Sodium 40 Mg/0.4 Ml Syringe) 40 mg SUBCUT Q24H [facility] Acyclovir Sodium 562.45 mg/ (Sodium Chloride) 111.249 mls @ 111.249 mls/hr IV Q8H [facility] Last Infusion: 05/13/24 15:24 Dose: Infused Documented By: HERMINIO Magnesium Hydroxide (Milk Of Magnesia 30 Ml Oral.Susp) 30 ml PO DAILY PRN PRN Reason: Constipation Melatonin (Melatonin 3 Mg Tablet) 6 mg PO BEDTIME PRN PRN Reason: Insomnia Omeprazole (Omeprazole 20 Mg Capsule.Dr) 20 mg PO DAILY@0630 [facility] Ondansetron HCl (Ondansetron Hcl 4 Mg/2 Ml Vial) 4 mg IVPUSH Q4H PRN PRN Reason: Nausea and Vomiting Sodium Chloride (0.9 % Sodium Chloride Flush 3 Ml Syringe) 3 ml IVFLUSH QSHIFT [facility] Last Admin: 05/13/24 16:01 Dose: 3 ml Documented By: HERMINIO Labs 05/13/24 04:11 05/13/24 04:11 Labs: Laboratory Results - last 24 hr 05/12/24 05/12/24 05/12/24 19:30 20:47 23:38 MCV 89.1 MCH 31.5 MCHC 35.4 RDW 14.6 Plt Count 274 MPV 10.8 Immature Gran % (Auto) 0.4 Neut % (Auto) 82.7 H Lymph % (Auto) 10.0 L [place] % (Auto) 6.3 Eos % (Auto) 0.1 Baso % (Auto) 0.5 Lymph # (Auto) 1.4 [place] # (Auto) 0.9 Eos # (Auto) 0.0 Baso # (Auto) 0.1 Abs Immat Gran (auto) 0.06 H Absolute Neuts (auto) 11.9 H Absolute Nucleated RBC 0.000 Nucleated RBC % (auto) 0.0 Anion Gap 23 H Estim Creat Clear Calc 58.5 Estimated GFR > 60 Random Glucose 137 H Lactic Acid 3.0 H* Lactic Acid F/U @ 2Hr 1.1 Calcium 11.2 H Magnesium 2.5 Total Bilirubin 0.6 AST 54 H ALT 58 H Alkaline Phosphatase 91 Total Creatine Kinase 1545 H C-Reactive Protein 1.06 H Total Protein 9.8 H Albumin 5.5 H Lipase 26 Vitamin B12 Folate Procalcitonin Urine Color Yellow Urine Appearance Clear Urine pH 5.5 Ur Specific [place] 1.010 Urine Protein 30 (1+) H Urine Glucose (UA) Negative Urine Ketones 40 Urine Blood Moderate (2+) H Urine Nitrite Negative Ur Leukocyte Esterase Negative Urine RBC 0-2 Urine WBC 0-5 Ur Squamous Epith Cells 0-2 Urine Bacteria None Seen Hyaline Casts 0-2 CSF Tube Number CSF Volume CSF Appearance CSF Color CSF WBC CSF RBC CSF Neutrophils CSF Lymphocytes CSF Monocytes % CSF Appearance (b) CSF Glucose CSF Total Protein CSF C.neoform/gat PCR CSF CMV DNA (PCR) CSF Enterovirus (PCR) CSF E. coli K1 (PCR) CSF H. influenzae (PCR) CSF HSV I (PCR) CSF HSV II (PCR) CSF HHV 6 (PCR) CSF L.monocytogenes PCR CSF N. meningitidis PCR CSF Parechovirus (PCR) CSF S. agalactiae (PCR) CSF S. pneumoniae (PCR) CSF VZV (PCR) Urine Opiates Screen POSITIVE H Ur Buprenorphine Scrn Not Detected Ur Oxycodone Screen Not Detected Urine Methadone Screen Not Detected Urine Fentanyl Screen Not Detected Ur Barbiturates Screen Not Detected Ur Phencyclidine Scrn Not Detected Ur Amphetamines Screen Not Detected U Benzodiazepines Scrn Not Detected Urine Cocaine Screen Not Detected U Marijuana (THC) Screen POSITIVE H HIV 1&2 Ab/P24 Ag 4thGn 05/13/24 05/13/24 05/13/24 01:06 01:06 01:06 MCV MCH MCHC RDW Plt Count MPV Immature Gran % (Auto) Neut % (Auto) Lymph % (Auto) [place] % (Auto) Eos % (Auto) Baso % (Auto) Lymph # (Auto) [place] # (Auto) Eos # (Auto) Baso # (Auto) Abs Immat Gran (auto) Absolute Neuts (auto) Absolute Nucleated RBC Nucleated RBC % (auto) Anion Gap Estim Creat Clear Calc Estimated GFR Random Glucose Lactic Acid Lactic Acid F/U @ 2Hr Calcium Magnesium Total Bilirubin AST ALT Alkaline Phosphatase Total Creatine Kinase C-Reactive Protein Total Protein Albumin Lipase Vitamin B12 Folate Procalcitonin 0.08 Urine Color Urine Appearance Urine pH Ur Specific [place] Urine Protein Urine Glucose (UA) Urine Ketones Urine Blood Urine Nitrite Ur Leukocyte Esterase Urine RBC Urine WBC Ur Squamous Epith Cells Urine Bacteria Hyaline Casts CSF Tube Number 2 1 4 CSF Volume 1.0 CSF Appearance CSF Color CSF WBC CSF RBC CSF Neutrophils CSF Lymphocytes CSF Monocytes % CSF Appearance (b) CSF Glucose CSF Total Protein CSF C.neoform/gat PCR CSF CMV DNA (PCR) CSF Enterovirus (PCR) CSF E. coli K1 (PCR) CSF H. influenzae (PCR) CSF HSV I (PCR) CSF HSV II (PCR) CSF HHV 6 (PCR) CSF L.monocytogenes PCR CSF N. meningitidis PCR CSF Parechovirus (PCR) CSF S. agalactiae (PCR) CSF S. pneumoniae (PCR) CSF VZV (PCR) Urine Opiates Screen Ur Buprenorphine Scrn Ur Oxycodone Screen Urine Methadone Screen Urine Fentanyl Screen Ur Barbiturates Screen Ur Phencyclidine Scrn Ur Amphetamines Screen U Benzodiazepines Scrn Urine Cocaine Screen U Marijuana (THC) Screen HIV 1&2 Ab/P24 Ag 4thGn 05/13/24 05/13/24 05/13/24 01:06 01:06 01:06 MCV MCH MCHC RDW Plt Count MPV Immature Gran % (Auto) Neut % (Auto) Lymph % (Auto) [place] % (Auto) Eos % (Auto) Baso % (Auto) Lymph # (Auto) [place] # (Auto) Eos # (Auto) Baso # (Auto) Abs Immat Gran (auto) Absolute Neuts (auto) Absolute Nucleated RBC Nucleated RBC % (auto) Anion Gap Estim Creat Clear Calc Estimated GFR Random Glucose Lactic Acid Lactic Acid F/U @ 2Hr Calcium Magnesium Total Bilirubin AST ALT Alkaline Phosphatase Total Creatine Kinase C-Reactive Protein Total Protein Albumin Lipase Vitamin B12 Folate Procalcitonin Urine Color Urine Appearance Urine pH Ur Specific [place] Urine Protein Urine Glucose (UA) Urine Ketones Urine Blood Urine Nitrite Ur Leukocyte Esterase Urine RBC Urine WBC Ur Squamous Epith Cells Urine Bacteria Hyaline Casts CSF Tube Number CSF Volume 1.0 CSF Appearance CLEAR CLEAR CSF Color COLORLESS COLORLESS CSF WBC 3 CSF RBC CSF Neutrophils CSF Lymphocytes CSF Monocytes % CSF Appearance (b) CSF Glucose CSF Total Protein CSF C.neoform/gat PCR CSF CMV DNA (PCR) CSF Enterovirus (PCR) CSF E. coli K1 (PCR) CSF H. influenzae (PCR) CSF HSV I (PCR) CSF HSV II (PCR) CSF HHV 6 (PCR) CSF L.monocytogenes PCR CSF N. meningitidis PCR CSF Parechovirus (PCR) CSF S. agalactiae (PCR) CSF S. pneumoniae (PCR) CSF VZV (PCR) Urine Opiates Screen Ur Buprenorphine Scrn Ur Oxycodone Screen Urine Methadone Screen Urine Fentanyl Screen Ur Barbiturates Screen Ur Phencyclidine Scrn Ur Amphetamines Screen U Benzodiazepines Scrn Urine Cocaine Screen U Marijuana (THC) Screen HIV 1&2 Ab/P24 Ag 4thGn 05/13/24 05/13/24 05/13/24 01:06 01:06 01:06 MCV MCH MCHC RDW Plt Count MPV Immature Gran % (Auto) Neut % (Auto) Lymph % (Auto) [place] % (Auto) Eos % (Auto) Baso % (Auto) Lymph # (Auto) [place] # (Auto) Eos # (Auto) Baso # (Auto) Abs Immat Gran (auto) Absolute Neuts (auto) Absolute Nucleated RBC Nucleated RBC % (auto) Anion Gap Estim Creat Clear Calc Estimated GFR Random Glucose Lactic Acid Lactic Acid F/U @ 2Hr Calcium Magnesium Total Bilirubin AST ALT Alkaline Phosphatase Total Creatine Kinase C-Reactive Protein Total Protein Albumin Lipase Vitamin B12 Folate Procalcitonin Urine Color Urine Appearance Urine pH Ur Specific [place] Urine Protein Urine Glucose (UA) Urine Ketones Urine Blood Urine Nitrite Ur Leukocyte Esterase Urine RBC Urine WBC Ur Squamous Epith Cells Urine Bacteria Hyaline Casts CSF Tube Number CSF Volume CSF Appearance CSF Color CSF WBC 7 CSF RBC 0 0 CSF Neutrophils 50 75 CSF Lymphocytes 35 CSF Monocytes % CSF Appearance (b) CSF Glucose CSF Total Protein CSF C.neoform/gat PCR CSF CMV DNA (PCR) CSF Enterovirus (PCR) CSF E. coli K1 (PCR) CSF H. influenzae (PCR) CSF HSV I (PCR) CSF HSV II (PCR) CSF HHV 6 (PCR) CSF L.monocytogenes PCR CSF N. meningitidis PCR CSF Parechovirus (PCR) CSF S. agalactiae (PCR) CSF S. pneumoniae (PCR) CSF VZV (PCR) Urine Opiates Screen Ur Buprenorphine Scrn Ur Oxycodone Screen Urine Methadone Screen Urine Fentanyl Screen Ur Barbiturates Screen Ur Phencyclidine Scrn Ur Amphetamines Screen U Benzodiazepines Scrn Urine Cocaine Screen U Marijuana (THC) Screen HIV 1&2 Ab/P24 Ag 4thGn 05/13/24 05/13/24 05/13/24 01:06 01:06 04:11 MCV 91.0 MCH 32.1 MCHC 35.3 RDW 14.8 Plt Count 252 MPV 11.0 Immature Gran % (Auto) 0.4 Neut % (Auto) 71.5 Lymph % (Auto) 16.8 L [place] % (Auto) 10.8 Eos % (Auto) 0.1 Baso % (Auto) 0.4 Lymph # (Auto) 2.3 [place] # (Auto) 1.5 H Eos # (Auto) 0.0 Baso # (Auto) 0.1 Abs Immat Gran (auto) 0.05 H Absolute Neuts (auto) 9.7 H Absolute Nucleated RBC 0.000 Nucleated RBC % (auto) 0.0 Anion Gap 12 Estim Creat Clear Calc 85.4 Estimated GFR > 60 Random Glucose 98 Lactic Acid Lactic Acid F/U @ 2Hr Calcium 9.0 D Magnesium Total Bilirubin AST ALT Alkaline Phosphatase Total Creatine Kinase C-Reactive Protein Total Protein Albumin Lipase Vitamin B12 Folate Procalcitonin Urine Color Urine Appearance Urine pH Ur Specific [place] Urine Protein Urine Glucose (UA) Urine Ketones Urine Blood Urine Nitrite Ur Leukocyte Esterase Urine RBC Urine WBC Ur Squamous Epith Cells Urine Bacteria Hyaline Casts CSF Tube Number CSF Volume CSF Appearance CSF Color CSF WBC CSF RBC CSF Neutrophils CSF Lymphocytes 10 CSF Monocytes % 15 15 CSF Appearance (b) Clear, Colorless CSF Glucose 73 CSF Total Protein 51.1 H CSF C.neoform/gat PCR Not Detected CSF CMV DNA (PCR) Not Detected CSF Enterovirus (PCR) Not Detected CSF E. coli K1 (PCR) Not Detected CSF H. influenzae (PCR) Not Detected CSF HSV I (PCR) Not Detected CSF HSV II (PCR) Not Detected CSF HHV 6 (PCR) Not Detected CSF L.monocytogenes PCR Not Detected CSF N. meningitidis PCR Not Detected CSF Parechovirus (PCR) Not Detected CSF S. agalactiae (PCR) Not Detected CSF S. pneumoniae (PCR) Not Detected CSF VZV (PCR) Not Detected Urine Opiates Screen Ur Buprenorphine Scrn Ur Oxycodone Screen Urine Methadone Screen Urine Fentanyl Screen Ur Barbiturates Screen Ur Phencyclidine Scrn Ur Amphetamines Screen U Benzodiazepines Scrn Urine Cocaine Screen U Marijuana (THC) Screen HIV 1&2 Ab/P24 Ag 4thGn 05/13/24 05/13/24 07:39 12:26 MCV MCH MCHC RDW Plt Count MPV Immature Gran % (Auto) Neut % (Auto) Lymph % (Auto) [place] % (Auto) Eos % (Auto) Baso % (Auto) Lymph # (Auto) [place] # (Auto) Eos # (Auto) Baso # (Auto) Abs Immat Gran (auto) Absolute Neuts (auto) Absolute Nucleated RBC Nucleated RBC % (auto) Anion Gap Estim Creat Clear Calc Estimated GFR Random Glucose Lactic Acid Lactic Acid F/U @ 2Hr Calcium Magnesium Total Bilirubin AST ALT Alkaline Phosphatase Total Creatine Kinase C-Reactive Protein Total Protein Albumin Lipase Vitamin B12 431 Folate 12.7 Procalcitonin Urine Color Urine Appearance Urine pH Ur Specific [place] Urine Protein Urine Glucose (UA) Urine Ketones Urine Blood Urine Nitrite Ur Leukocyte Esterase Urine RBC Urine WBC Ur Squamous Epith Cells Urine Bacteria Hyaline Casts CSF Tube Number CSF Volume CSF Appearance CSF Color CSF WBC CSF RBC CSF Neutrophils CSF Lymphocytes CSF Monocytes % CSF Appearance (b) CSF Glucose CSF Total Protein CSF C.neoform/gat PCR CSF CMV DNA (PCR) CSF Enterovirus (PCR) CSF E. coli K1 (PCR) CSF H. influenzae (PCR) CSF HSV I (PCR) CSF HSV II (PCR) CSF HHV 6 (PCR) CSF L.monocytogenes PCR CSF N. meningitidis PCR CSF Parechovirus (PCR) CSF S. agalactiae (PCR) CSF S. pneumoniae (PCR) CSF VZV (PCR) Urine Opiates Screen Ur Buprenorphine Scrn Ur Oxycodone Screen Urine Methadone Screen Urine Fentanyl Screen Ur Barbiturates Screen Ur Phencyclidine Scrn Ur Amphetamines Screen U Benzodiazepines Scrn Urine Cocaine Screen U Marijuana (THC) Screen HIV 1&2 Ab/P24 Ag 4thGn Nonreactive Microbiology Microbiology Results: Microbiology 05/13/24 01:06 Gram Stain - Final Cerebrospinal Fluid CSF Examination - Final Fluid Description - Final Assessment and Plan (1) Viral encephalitis: Status: Acute Assessment and Plan: d1 49yo M with no chronic conditions other than GERD coming in with AMS, found to have SIRS [leukocytosis + tachypnea], CSF concerning for viral encephalitis viral encephalitis - Neuro + ID consulted - EEG today: This EEG is considered abnormal due to bitemporal slowing occasionally with sharp transient suggestive of a bilateral encephalopathic process involving the temporal regions. No clearly epileptiform discharges are seen. Clinical correlation is suggested. - MRI pending - Lyme serologies + PCR pending. HIV negative - check resp pathogen panel - on acyclovir 05/12- mild rhabdomyolysis - IV hydration, recheck CPK in AM VTE ppx - LMWH dispo - eventual home In my clinical judgment, the patient requires continued inpatient hospitalization for the following reasons: encephalitis workup Total time managing care of this patient today: 45 minutes. Quality Stroke Does the patient have a stroke diagnosis?: No VTE Prior VTE?: No VTE Risk Level:: Medical - moderate - high VTE Device Contraindication: Treatment Not Indicated VTE Drug Contraindication: N/A - Med Ordered
[2024-05-13] MEDS: 0.9 % Sodium Chloride 1,000 ML 100 ML IVCONT (17:05)
--- NOTE | 2024-05-13 17:05 | PC.NURSE ---
ivf started per order
--- NOTE | 2024-05-13 19:30 | PC.NURSE ---
pt to MRI
--- NOTE | 2024-05-13 19:54 | PC.NURSE ---
this rn assumed care of pt, pt in MRI at this time.
[2024-05-13] MEDS: gadobutroL 7.5 ML VIAL IVPUSH (20:11)
--- NOTE | 2024-05-13 20:59 | PC.NURSE ---
pt returned from MRI at this time, pt medicated per mar, fluids re started at this time.
[2024-05-13 21:41] LABS: COVID-19 Test Negative (Negative); IDNOW Serial# 08D9AD1C
--- NOTE | 2024-05-14 01:05 | P.CNID_ITS ---
History of Present Illness Data of Consult Service Date: 05/13/24 Requesting physician: Teodoro Bansal Primary Care Provider: Unknown Physician HPI Reason for consult: confusion He presents with confusion at work. He doesnt know where he is. LP and MRI unremarkable except for protein elevation CSF. There is no fever. Review of Systems 2 Review of Systems: Yes all other systems are reviewed and are negative PMFSH Family History Family history: reviewed and not pertinent Social History Social History Household Members: Spouse and Other Household Members Other:: roommate Housing: Apartment Patient Tobacco Use Status: Former Tobacco user e-Cigarette/Vaping Use: Former Use Substance Use Type: Marijuana Meds Allergies Allergy/AdvReac Type Severity Reaction Status Date / Time No Known Allergies Allergy Verified 05/12/24 19:21 Active Medications: Current Medications Acetaminophen (Acetaminophen 325 Mg Tablet) 650 mg PO Q6H PRN PRN Reason: Pain, Mild (Pain Scale 1-3), fever or headache Last Admin: 05/13/24 15:58 Dose: 650 mg Calcium Carbonate (Calcium Carbonate 750 Mg Tab.Chew) 750 mg PO Q4H PRN PRN Reason: Heartburn Enoxaparin Sodium (Enoxaparin Sodium 40 Mg/0.4 Ml Syringe) 40 mg SUBCUT Q24H [facility] Acyclovir Sodium 562.45 mg/ (Sodium Chloride) 111.249 mls @ 111.249 mls/hr IV Q8H [facility] Last Infusion: 05/13/24 22:50 Dose: Infused Sodium Chloride (Ns) 1,000 mls @ 100 mls/hr IVCONT .Q10H [facility] Last Admin: 05/13/24 17:05 Dose: 100 mls/hr Magnesium Hydroxide (Milk Of Magnesia 30 Ml Oral.Susp) 30 ml PO DAILY PRN PRN Reason: Constipation Melatonin (Melatonin 3 Mg Tablet) 6 mg PO BEDTIME PRN PRN Reason: Insomnia Omeprazole (Omeprazole 20 Mg Capsule.Dr) 20 mg PO DAILY@0630 [facility] Ondansetron HCl (Ondansetron Hcl 4 Mg/2 Ml Vial) 4 mg IVPUSH Q4H PRN PRN Reason: Nausea and Vomiting Sodium Chloride (0.9 % Sodium Chloride Flush 3 Ml Syringe) 3 ml IVFLUSH QSHIFT [facility] Last Admin: 05/14/24 00:48 Dose: Not Given Home Medications ?Medication ?Instructions ?Recorded ?Confirmed ?Last Taken ?Type omeprazole 20 mg capsule,delayed 20 mg PO DAILY@0630 05/13/24 05/13/24 Unknown History release Physical Exam 2 Vital Signs: Vital Signs: Last Vital Signs Temp 97.9 F 05/13/24 22:13 Pulse 55 05/13/24 22:13 Resp 16 05/13/24 22:13 BP 159/72 H 05/13/24 22:13 Pulse Ox 97 05/13/24 22:13 O2 Del Method Room Air 05/13/24 22:13 BMI result Body Mass Index 21.3 Const: General: cooperative HEENT: Head: Yes normal to inspection Face and sinus: Yes normal facial exam Mouth: Normal oral and palatal mucosa present Teeth and gingiva: d entition normal Eyes: General: appearance normal, both eyes and all related structures P upils: Equal, round and reactive pupils present Resp: Effort & Inspection: normal respiratory effort Cardio: Rate: regular rate Rhythm: regular rhythm GI: Palpation (GI): Soft to palpation and nontender : General: Yes no CVA tenderness Back/Spine/Pelvis: Back: no CVA tenderness Skin: General skin exam: no rashes or lesions noted Neuro: General: moves all extremities Cranial nerves: Yes Equal, round and reactive pupils present Extrem: General: Yes normal to inspection Psych: Appearance: grossly normal Results Labs 05/13/24 04:11 05/13/24 04:11 Labs: Short CBC 05/13/24 Range/Units 04:11 WBC 13.6 H (4.8-10.8) X10*3/uL Hgb 13.5 L (14.0-18.0) g/dl Hct 38.2 L (42.0-52.0) % Plt Count 252 (160-400) X10*3/uL BMP 05/13/24 04:11 Sodium 136 Potassium 4.1 Chloride 110 H Carbon Dioxide 18 L BUN 19 H Creatinine 0.85 Calcium 9.0 D Microbiology Microbiology Results: Microbiology 05/12/24 21:50 Blood - Venous Blood Culture - Preliminary No growth after 24 hours. 05/12/24 21:50 Blood - Venous Blood Culture - Preliminary No growth after 24 hours. 05/13/24 01:06 Cerebrospinal Fluid Gram Stain - Final 05/13/24 01:06 Cerebrospinal Fluid CSF Examination - Final 05/13/24 01:06 Cerebrospinal Fluid Fluid Description - Final Assessment and Plan (1) Acute encephalopathy: Status: Acute Plan Usually viral encephalitis has fever. There is no signs of herpes simplex in CSF. 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 He is HIV negative per patient. There are opioids reported Stop antivirals likely tomorrow. Psych eval may be helpful and make sure atypical seizure state ruled out. HIV test if not done.
[2024-05-14] MEDS: 0.9 % Sodium Chloride 1,000 ML 100 ML IVCONT ×2 (02:40→11:29)
[2024-05-14 03:25] VITALS: BP 120/67; PULSE 66; RESP 16; TEMP 36.2; O2SAT 98
[2024-05-14] MEDS: Omeprazole 20 MG CAPSULE.DR PO (05:40)
[2024-05-14] MEDS: Enoxaparin Sodium 40 MG/0.4 ML SYRINGE SUBCUT (07:50)
[2024-05-14 07:57] VITALS: BP 159/70; PULSE 57; RESP 18; TEMP 36.4; O2SAT 97
[2024-05-14 08:22] LABS: Hematocrit 36.9 % (42.0-52.0); Hemoglobin 12.7 g/dl (14.0-18.0); Mean Corpuscular HGB Conc 34.4 g/dl (31.0-36.0); Mean Corpuscular Hemoglobin 31.7 pg (27.0-33.0); Mean Platelet Volume 10.8 fL (9.4-12.4); Platelet Count 232 X10*3/uL (160-400); Red Blood Count 4.01 X10*6/uL (4.60-5.80); Red Cell Distribution Width 14.7 % (11.0-16.0); White Blood Count 10.8 X10*3/uL (4.8-10.8)
[2024-05-14 08:32] LABS: Adenovirus PCR Not Detected (Not Detect.); Bordetella parapertussis PCR Not Detected (Not Detect.); Bordetella pertussis PCR Not Detected (Not Detect.); Chlamydia pneumoniae PCR Not Detected (Not Detect.); Coronavirus 229E PCR Not Detected (Not Detect.); Coronavirus HKU1 PCR Not Detected (Not Detect.); Coronavirus NL63 PCR Not Detected (Not Detect.); Coronavirus OC43 PCR Not Detected (Not Detect.); Human metapneumovirus PCR Not Detected (Not Detect.); Influenza A PCR Not Detected (Not Detect.); Influenza B PCR Not Detected (Not Detect.); Mycoplasma pneumoniae PCR Not Detected (Not Detect.); Parainfluenza 1 PCR Not Detected (Not Detect.); Parainfluenza 2 PCR Not Detected (Not Detect.); Parainfluenza 3 PCR Not Detected (Not Detect.); Parainfluenza 4 PCR Not Detected (Not Detect.); RSV PCR Not Detected (Not Detect.); Rhino/Enterovirus PCR Not Detected (Not Detect.)
[2024-05-14 08:43] LABS: Alanine Aminotransferase 46 U/L (0-40); Albumin Level 4.2 g/dL (3.5-5.0); Alkaline Phosphatase 73 U/L (39-117); Anion Gap 14 (12-20); Aspartate Amino Transferase 42 U/L (5-37); Bilirubin Total 0.8 mg/dL (0.0-1.0); Blood Urea Nitrogen 14 mg/dL (9-16); C Reactive Protein 1.38 mg/dL (< or = 0.50); Calcium 8.8 mg/dL (8.4-10.2); Carbon Dioxide 16 mmol/L (22-29); Chloride 113 mmol/L (96-108); Creatinine Clr Calc Pharmacy 109.1; Estimated Glomerular Filt Rate > 60; Glucose Random 76 mg/dL (60-115); Potassium 4.3 mmol/L (3.3-5.1); Sodium 139 mmol/L (135-145); Total Protein 7.2 g/dL (6.5-8.0)
[2024-05-14 08:55] LABS: SARS-CoV-2 PCR Not Detected (Not Detect.)
--- NOTE | 2024-05-14 09:28 | HO.PM.IMPN ---
Subjective Subjective Date of Service: 05/14/24 Interval History: c/o headache no neck stiffness Review of Systems Review of Systems: Yes all other systems are reviewed and are negative Physical Exam Vital Signs: Vital Signs: Last Vital Signs Temp 97.5 F 05/14/24 07:57 Pulse 57 05/14/24 07:57 Resp 18 05/14/24 07:57 BP 159/70 H 05/14/24 07:57 Pulse Ox 97 05/14/24 07:57 O2 Del Method Room Air 05/14/24 07:57 BMI result Body Mass Index 21.3 Gen: in no acute distress HEENT: sclera anicteric, moist mucus membranes Neck: supple, no adenopathy Lungs: clear to auscultation bilaterally Heart: regular rate and rhythm, no murmurs Abd: soft, non-tender, non-distended Ext: no edema Skin: warm/well-perfused Neuro: alert and oriented to self + place + day but not month or year, no focal weakness Psych: appropriate affect Objective Data Active Medications Acetaminophen (Acetaminophen 325 Mg Tablet) 650 mg PO Q6H PRN PRN Reason: Pain, Mild (Pain Scale 1-3), fever or headache Last Admin: 05/13/24 15:58 Dose: 650 mg Documented By: HERMINIO Calcium Carbonate (Calcium Carbonate 750 Mg Tab.Chew) 750 mg PO Q4H PRN PRN Reason: Heartburn Enoxaparin Sodium (Enoxaparin Sodium 40 Mg/0.4 Ml Syringe) 40 mg SUBCUT Q24H [facility] Last Admin: 05/14/24 07:50 Dose: 40 mg Documented By: JAVID Acyclovir Sodium 562.45 mg/ (Sodium Chloride) 111.249 mls @ 111.249 mls/hr IV Q8H [facility] Last Infusion: 05/14/24 05:27 Dose: Infused Documented By: CASTILPaty Sodium Chloride (Ns) 1,000 mls @ 100 mls/hr IVCONT .Q10H [facility] Last Admin: 05/14/24 02:40 Dose: 100 mls/hr Documented By: SURJITILPaty Magnesium Hydroxide (Milk Of Magnesia 30 Ml Oral.Susp) 30 ml PO DAILY PRN PRN Reason: Constipation Melatonin (Melatonin 3 Mg Tablet) 6 mg PO BEDTIME PRN PRN Reason: Insomnia Omeprazole (Omeprazole 20 Mg Capsule.) 20 mg PO DAILY@0630 [facility] Last Admin: 05/14/24 05:40 Dose: 20 mg Documented By: HODAN Ondansetron HCl (Ondansetron Hcl 4 Mg/2 Ml Vial) 4 mg IVPUSH Q4H PRN PRN Reason: Nausea and Vomiting Sodium Chloride (0.9 % Sodium Chloride Flush 3 Ml Syringe) 3 ml IVFLUSH QSHIFT [facility] Last Admin: 05/14/24 07:19 Dose: Not Given Documented By: JAVID Non-Admin Reason: Previously Administered Labs 05/14/24 07:56 05/14/24 07:56 Labs: Impressions Brain MRI 05/13/24 20:11 IMPRESSION: 1. No acute intracranial abnormalities. No abnormal intracranial enhancement. 2. Mild nonspecific white matter changes. Laboratory Results - last 24 hr 05/13/24 05/13/24 05/13/24 12:26 16:53 21:21 MCV MCH MCHC RDW Plt Count MPV Absolute Nucleated RBC Nucleated RBC % (auto) Anion Gap Estim Creat Clear Calc Estimated GFR Random Glucose Calcium Total Bilirubin AST ALT Alkaline Phosphatase Total Creatine Kinase C-Reactive Protein Total Protein Albumin Respiratory Panel Higgins See Note Adenovirus (Rapid PCR) Not Detected B.pert (TEM-PCR) Not Detected B.parapertussis DNA PCR Not Detected C. pneumoniae DNA (PCR) Not Detected Coronavirus OC43 (PCR) Not Detected Coronavirus HKU1 (PCR) Not Detected Coronavirus 229E (PCR) Not Detected COVID-19 (YUDITH) Negative COVID-19 Clin Com See Note Coronavirus NL63 (PCR) Not Detected HIV 1&2 Ab/P24 Ag 4thGn Nonreactive Human Metapneumovir PCR Not Detected Influenza A (RT-PCR) Not Detected Influenza B (RT-PCR) Not Detected M. pneumoniae (PCR) Not Detected Parainfluenza 1 (PCR) Not Detected Parainfluenza 2 (PCR) Not Detected Parainfluenza 3 (PCR) Not Detected Parainfluenza 4 (PCR) Not Detected RSV (PCR) Not Detected Entero/Rhino (PCR) Not Detected SARS-CoV-2 RNA (RT-PCR) Not Detected 05/14/24 07:56 MCV 92.0 MCH 31.7 MCHC 34.4 RDW 14.7 Plt Count 232 MPV 10.8 Absolute Nucleated RBC 0.000 Nucleated RBC % (auto) 0.0 Anion Gap 14 Estim Creat Clear Calc 109.1 Estimated GFR > 60 Random Glucose 76 Calcium 8.8 Total Bilirubin 0.8 AST 42 H ALT 46 H Alkaline Phosphatase 73 Total Creatine Kinase 1369 H C-Reactive Protein 1.38 H Total Protein 7.2 Albumin 4.2 Respiratory Panel Higgins Adenovirus (Rapid PCR) B.pert (TEM-PCR) B.parapertussis DNA PCR C. pneumoniae DNA (PCR) Coronavirus OC43 (PCR) Coronavirus HKU1 (PCR) Coronavirus 229E (PCR) COVID-19 (YUDITH) COVID-19 Clin Com Coronavirus NL63 (PCR) HIV 1&2 Ab/P24 Ag 4thGn Human Metapneumovir PCR Influenza A (RT-PCR) Influenza B (RT-PCR) M. pneumoniae (PCR) Parainfluenza 1 (PCR) Parainfluenza 2 (PCR) Parainfluenza 3 (PCR) Parainfluenza 4 (PCR) RSV (PCR) Entero/Rhino (PCR) SARS-CoV-2 RNA (RT-PCR) Microbiology Microbiology Results: Microbiology 05/13/24 01:06 Gram Stain - Final Cerebrospinal Fluid CSF Examination - Final Fluid Description - Final CSF Culture - Preliminary No growth after 1 day 05/12/24 21:50 Blood Culture - Preliminary Blood - Venous No growth after 24 hours. 05/12/24 21:50 Blood Culture - Preliminary Blood - Venous No growth after 24 hours. Assessment and Plan (1) Viral encephalitis: Status: Acute Assessment and Plan: d2 49yo M with no chronic conditions other than GERD coming in with AMS, found to have SIRS [leukocytosis + tachypnea], CSF concerning for viral encephalitis though pt never had fever viral encephalitis - Neuro + ID consulted - EEG today: This EEG is considered abnormal due to bitemporal slowing occasionally with sharp transient suggestive of a bilateral encephalopathic process involving the temporal regions. No clearly epileptiform discharges are seen. Clinical correlation is suggested. - MRI only with nonspecific WM changes - Lyme serologies + PCR pending - HIV negative - resp pathogen panel pending - on acyclovir 05/12- - follow CSF Cx - advance diet today - counseled to avoid THC mild rhabdomyolysis - continue IV hydration, recheck CPK in AM VTE ppx - LMWH dispo - eventual home In my clinical judgment, the patient requires continued inpatient hospitalization for the following reasons: encephalitis workup Total time managing care of this patient today: 35 minutes. Quality Stroke Does the patient have a stroke diagnosis?: No VTE Prior VTE?: No VTE Risk Level:: Medical - moderate - high VTE Device Contraindication: Treatment Not Indicated VTE Drug Contraindication: N/A - Med Ordered
[2024-05-14] MEDS: Butalb/Acetamin/Caff 50/325/40 TABLET 1 TAB PO (09:53)
--- NOTE | 2024-05-14 10:58 | MHC.CM.PN ---
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
[2024-05-14 15:27] VITALS: BP 150/67; PULSE 66; RESP 18; TEMP 36.7; O2SAT 97
[2024-05-14 16:54] LABS: A. Phagocytphilium DNA,RT-PCR NOT DETECTED (NOT DETECTED); Babesia Microti DNA, RT-PCR NOT DETECTED (NOT DETECTED); Borrelia Miyamotoi,DNA RT-PCR NOT DETECTED (NOT DETECTED); E.Chaffeensis DNA RT-PCR NOT DETECTED (NOT DETECTED); Lyme(Borrelia ssp)DNA RT-PCR NOT DETECTED (NOT DETECTED)
[2024-05-14 20:00] VITALS: BP 157/74; PULSE 63; RESP 18; TEMP 36.7; O2SAT 98
[2024-05-14] MEDS: 0.9 % Sodium Chloride Flush 3 ML SYRINGE IVFLUSH (20:01)
[2024-05-15] MEDS: 0.9 % Sodium Chloride 1,000 ML 100 ML IVCONT (00:47)
--- NOTE | 2024-05-15 03:09 | PC.NURSE ---
Pt remains alert to person and place, able to make his needs known. He is cooperative and calm w/care. Camera in room. x1 assist/standby OOB to bathroom. Call mckeon within reach. Bed alarm on.
[2024-05-15 04:00] VITALS: BP 138/68; PULSE 66; RESP 16; TEMP 37; O2SAT 99
[2024-05-15] MEDS: Omeprazole 20 MG CAPSULE.DR PO (06:02)
[2024-05-15 06:24] LABS: Anion Gap 10 (12-20); Blood Urea Nitrogen 11 mg/dL (9-16); Calcium 9.3 mg/dL (8.4-10.2); Carbon Dioxide 21 mmol/L (22-29); Chloride 112 mmol/L (96-108); Creatinine Clr Calc Pharmacy 95.6; Estimated Glomerular Filt Rate > 60; Glucose Random 93 mg/dL (60-115); Potassium 4.4 mmol/L (3.3-5.1); Sodium 139 mmol/L (135-145)
[2024-05-15 07:26] VITALS: BP 126/61; PULSE 61; RESP 16; TEMP 36.6; O2SAT 98
[2024-05-15] MEDS: Enoxaparin Sodium 40 MG/0.4 ML SYRINGE SUBCUT (08:30)
--- NOTE | 2024-05-15 09:39 | P.PNIM_ITS ---
Subjective Subjective Date of Service: 05/15/24 Interval History: now oriented headache gone no fever states he likes to work out hard Review of Systems Review of Systems: Yes all other systems are reviewed and are negative Physical Exam 2 Vital Signs: Vital Signs: Last Vital Signs Temp 97.8 F 05/15/24 07:26 Pulse 61 05/15/24 07:26 Resp 16 05/15/24 07:26 BP 126/61 05/15/24 07:26 Pulse Ox 98 05/15/24 07:26 O2 Del Method Room Air 05/15/24 07:26 BMI result Body Mass Index 21.3 Gen: in no acute distress HEENT: sclera anicteric, moist mucus membranes Neck: supple Lungs: clear to auscultation bilaterally Heart: regular rate and rhythm, no murmurs Abd: soft, non-tender, non-distended Ext: no edema Skin: warm/well-perfused Neuro: alert and oriented x3, no focal findings Psych: appropriate affect Objective Data Active Medications Acetaminophen (Acetaminophen 325 Mg Tablet) 650 mg PO Q6H PRN PRN Reason: Pain, Mild (Pain Scale 1-3), fever or headache Last Admin: 05/13/24 15:58 Dose: 650 mg Documented By: HERMINIO Calcium Carbonate (Calcium Carbonate 750 Mg Tab.Chew) 750 mg PO Q4H PRN PRN Reason: Heartburn Enoxaparin Sodium (Enoxaparin Sodium 40 Mg/0.4 Ml Syringe) 40 mg SUBCUT Q24H [facility] Last Admin: 05/15/24 08:30 Dose: 40 mg Documented By: EDWARD Acyclovir Sodium 562.45 mg/ (Sodium Chloride) 111.249 mls @ 111.249 mls/hr IV Q8H [facility] Last Infusion: 05/15/24 05:15 Dose: Infused Documented By: SHARON Sodium Chloride (Ns) 1,000 mls @ 150 mls/hr IVCONT .Q6H40M [facility] Last Infusion: 05/15/24 08:29 Dose: 150 mls/hr Documented By: EDWARD Magnesium Hydroxide (Milk Of Magnesia 30 Ml Oral.Susp) 30 ml PO DAILY PRN PRN Reason: Constipation Melatonin (Melatonin 3 Mg Tablet) 6 mg PO BEDTIME PRN PRN Reason: Insomnia Omeprazole (Omeprazole 20 Mg Capsule.Dr) 20 mg PO DAILY@0630 [facility] Last Admin: 05/15/24 06:02 Dose: 20 mg Documented By: SHARON Ondansetron HCl (Ondansetron Hcl 4 Mg/2 Ml Vial) 4 mg IVPUSH Q4H PRN PRN Reason: Nausea and Vomiting Sodium Chloride (0.9 % Sodium Chloride Flush 3 Ml Syringe) 3 ml IVFLUSH QSHIFT [facility] Last Admin: 05/15/24 08:29 Dose: Not Given Documented By: EDWARD Non-Admin Reason: IV Running Labs 05/14/24 07:56 05/15/24 05:16 Labs: Laboratory Results - last 24 hr 05/13/24 05/15/24 12:26 05:16 Hold Purple Top SEE NOTE Anion Gap 10 L Estim Creat Clear Calc 95.6 Estimated GFR > 60 Random Glucose 93 Calcium 9.3 Total Creatine Kinase 1365 H A.phagocytophil DNA PCR NOT DETECTED Babesia microti DNA PCR NOT DETECTED Borrelia sp DNA (PCR) NOT DETECTED Borrelia miyamotoi (PCR) NOT DETECTED E.chaffeensis DNA (PCR) NOT DETECTED Tick-borne Disease PCR SEE NOTE Microbiology Microbiology Results: Microbiology 05/13/24 01:06 Gram Stain - Final Cerebrospinal Fluid CSF Examination - Final Fluid Description - Final CSF Culture - Preliminary No growth after 2 days 05/12/24 21:50 Blood Culture - Preliminary Blood - Venous No growth after 48 hours. 05/12/24 21:50 Blood Culture - Preliminary Blood - Venous No growth after 48 hours. Assessment and Plan (1) Viral encephalitis: Status: Acute Assessment and Plan: d3 49yo M with no chronic conditions other than GERD coming in with AMS, found to have SIRS [leukocytosis + tachypnea], CSF concerning for viral encephalitis though pt never had fever viral encephalitis - Neuro + ID consulted - EEG 05/13: This EEG is considered abnormal due to bitemporal slowing occasionally with sharp transient suggestive of a bilateral encephalopathic process involving the temporal regions. No clearly epileptiform discharges are seen. Clinical correlation is suggested. - MRI only with nonspecific WM changes - Lyme serology pending but PCR negative - HIV negative - resp pathogen panel negative - on acyclovir 05/12-05/15, will d/c today and monitor 1 more day - follow CSF Cx, negative to date - advanced diet - counseled to avoid THC mild rhabdomyolysis - not much change in CPK; will increase fluid rate and recheck CPK in AM. Possibly exercise-induced? VTE ppx - LMWH dispo - eventual home In my clinical judgment, the patient requires continued inpatient hospitalization for the following reasons: IV hydration, encephalitis treatment Total time managing care of this patient today: 35 minutes. Quality Stroke Does the patient have a stroke diagnosis?: No VTE Prior VTE?: No VTE Risk Level:: Medical - moderate - high VTE Device Contraindication: Treatment Not Indicated VTE Drug Contraindication: N/A - Med Ordered
[2024-05-15] MEDS: 0.9 % Sodium Chloride 1,000 ML 150 ML IVCONT ×3 (10:39→22:30)
--- NOTE | 2024-05-15 12:48 | MHC.CM.PN ---
Per MD rounds, discharge is anticipated tomorrow. Patient will continue to receive fluids @ 150/HR. DP [facility] care. Patient has a ride home.
[2024-05-15 15:38] VITALS: BP 171/79; PULSE 55; RESP 18; TEMP 36.6; O2SAT 95
[2024-05-15 16:39] VITALS: BP 168/89; PULSE 57; RESP 20; O2SAT 97
--- NOTE | 2024-05-15 18:32 | PC.NURSE ---
BP 171/79. Rechecked after 1 hour BP 168/89. Denies pain. Provider aware. No new orders.
[2024-05-15] MEDS: Acetaminophen 325 MG TABLET 650 MG PO (18:49)
[2024-05-15 20:00] VITALS: BP 175/79; PULSE 69; RESP 20; TEMP 36.3; O2SAT 98
[2024-05-15] MEDS: Cyclobenzaprine HCl 5 MG TABLET PO (20:08)
[2024-05-15] MEDS: Melatonin 3 MG TABLET 6 MG PO (20:09)
--- NOTE | 2024-05-16 | ECG_ITS ---
Test Reason : cet kin levels Blood Pressure : / mmHG Vent. Rate : 054 BPM Atrial Rate : 054 BPM P-R Int : 158 ms QRS Dur : 084 ms QT Int : 432 ms P-R-T Axes : 000 -12 029 degrees QTc Int : 409 ms Sinus bradycardia Early repolarization Otherwise normal ECG No previous ECGs available Referred By: Teodoro Bansal Electronically Signed By:JUAN JOSE SEGURA
[2024-05-16 03:40] VITALS: BP 125/82; PULSE 64; RESP 20; TEMP 36.3; O2SAT 99
[2024-05-16] MEDS: 0.9 % Sodium Chloride 1,000 ML 150 ML IVCONT ×2 (05:19→08:13)
[2024-05-16] MEDS: Omeprazole 20 MG CAPSULE.DR PO (06:01)
[2024-05-16 07:03] LABS: Anion Gap 12 (12-20); Blood Urea Nitrogen 13 mg/dL (9-16); C Reactive Protein 0.67 mg/dL (< or = 0.50); Calcium 9.8 mg/dL (8.4-10.2); Carbon Dioxide 22 mmol/L (22-29); Chloride 112 mmol/L (96-108); Creatinine Clr Calc Pharmacy 91.1; Estimated Glomerular Filt Rate > 60; Glucose Random 94 mg/dL (60-115); Potassium 4.5 mmol/L (3.3-5.1); Sodium 141 mmol/L (135-145)
[2024-05-16 08:00] VITALS: BP 151/76; PULSE 58; RESP 16; TEMP 36.3; O2SAT 97
[2024-05-16] MEDS: Cyclobenzaprine HCl 5 MG TABLET PO ×3 (08:11→20:10)
[2024-05-16] MEDS: Enoxaparin Sodium 40 MG/0.4 ML SYRINGE SUBCUT (08:12)
[2024-05-16] MEDS: 0.9 % Sodium Chloride Flush 3 ML SYRINGE IVFLUSH (08:15)
[2024-05-16 09:05] LABS: Lyme Abs Screen EQUIVOCAL
--- NOTE | 2024-05-16 09:40 | P.PNIM_ITS ---
Subjective Subjective Date of Service: 05/16/24 Interval History: had some neck pain overnight, has resolved no headache no fever no confusion not on a statin no chest pain Review of Systems Review of Systems: Yes all other systems are reviewed and are negative Physical Exam 2 Vital Signs: Vital Signs: Last Vital Signs Temp 97.3 F 05/16/24 08:00 Pulse 58 05/16/24 08:00 Resp 16 05/16/24 08:00 BP 151/76 H 05/16/24 08:00 Pulse Ox 97 05/16/24 08:00 O2 Del Method Room Air 05/16/24 08:00 BMI result Body Mass Index 21.3 Gen: in no acute distress HEENT: sclera anicteric, moist mucus membranes Neck: supple Lungs: clear to auscultation bilaterally Heart: regular rate and rhythm, no murmurs Abd: soft, non-tender, non-distended Ext: no edema Skin: warm/well-perfused Neuro: alert and oriented x3, no focal findings Psych: appropriate affect Objective Data Active Medications Acetaminophen (Acetaminophen 325 Mg Tablet) 650 mg PO Q6H PRN PRN Reason: Pain, Mild (Pain Scale 1-3), fever or headache Last Admin: 05/15/24 18:49 Dose: 650 mg Documented By: EDWARD Calcium Carbonate (Calcium Carbonate 750 Mg Tab.Chew) 750 mg PO Q4H PRN PRN Reason: Heartburn Cyclobenzaprine HCl (Cyclobenzaprine Hcl 5 Mg Tablet) 5 mg PO TID [facility] Last Admin: 05/16/24 08:11 Dose: 5 mg Documented By: AMAURY Enoxaparin Sodium (Enoxaparin Sodium 40 Mg/0.4 Ml Syringe) 40 mg SUBCUT Q24H [facility] Last Admin: 05/16/24 08:12 Dose: 40 mg Documented By: AMAURY Sodium Chloride (Ns) 1,000 mls @ 160 mls/hr IVCONT .Q6H15M [facility] Last Infusion: 05/16/24 08:13 Dose: Infused Documented By: AMAURY Magnesium Hydroxide (Milk Of Magnesia 30 Ml Oral.Susp) 30 ml PO DAILY PRN PRN Reason: Constipation Melatonin (Melatonin 3 Mg Tablet) 6 mg PO BEDTIME PRN PRN Reason: Insomnia Last Admin: 05/15/24 20:09 Dose: 6 mg Documented By: LISA Omeprazole (Omeprazole 20 Mg Sarthak.) 20 mg PO DAILY@0630 [facility] Last Admin: 05/16/24 06:01 Dose: 20 mg Documented By: LISA Ondansetron HCl (Ondansetron Hcl 4 Mg/2 Ml Vial) 4 mg IVPUSH Q4H PRN PRN Reason: Nausea and Vomiting Sodium Chloride (0.9 % Sodium Chloride Flush 3 Ml Syringe) 3 ml IVFLUSH QSHIFT [facility] Last Admin: 05/16/24 08:15 Dose: 3 ml Documented By: AMAURY Labs 05/14/24 07:56 05/16/24 06:19 Labs: Laboratory Results - last 24 hr 05/13/24 05/16/24 12:26 06:19 Hold Purple Top SEE NOTE Anion Gap 12 Estim Creat Clear Calc 91.1 Estimated GFR > 60 Random Glucose 94 Calcium 9.8 Total Creatine Kinase 1700 H C-Reactive Protein 0.67 H Lyme Screen IgG & IgM EQUIVOCAL Lyme Progressive Test 0.90 H Microbiology Microbiology Results: Microbiology 05/13/24 01:06 Gram Stain - Final Cerebrospinal Fluid CSF Examination - Final Fluid Description - Final CSF Culture - Preliminary No growth after 2 days Assessment and Plan (1) Viral encephalitis: Status: Acute Assessment and Plan: d4 49yo M with no chronic conditions other than GERD coming in with AMS, found to have SIRS [leukocytosis + tachypnea], CSF concerning for viral encephalitis though pt never had fever viral encephalitis? - Neuro + ID consulted - EEG 05/13: This EEG is considered abnormal due to bitemporal slowing occasionally with sharp transient suggestive of a bilateral encephalopathic process involving the temporal regions. No clearly epileptiform discharges are seen. Clinical correlation is suggested. - MRI only with nonspecific WM changes - Lyme serology equivocal [WB pending] but PCR negative - HIV negative - resp pathogen panel negative - on acyclovir 05/12-05/15, d/c'ed - follow CSF Cx, negative to date - advanced diet - counseled to avoid THC mild rhabdomyolysis - not much change in CPK; will increase fluid rate and recheck CPK in AM. Possibly exercise-induced? Myositis? Consult nephrology. Check LFTs, trops. VTE ppx - LMWH dispo - eventual home In my clinical judgment, the patient requires continued inpatient hospitalization for the following reasons: IV hydration, elevated CPK Total time managing care of this patient today: 35 minutes. Quality Stroke Does the patient have a stroke diagnosis?: No VTE Prior VTE?: No VTE Risk Level:: Medical - moderate - high VTE Device Contraindication: Treatment Not Indicated VTE Drug Contraindication: N/A - Med Ordered
[2024-05-16 10:10] LABS: Alanine Aminotransferase 59 U/L (0-40); Albumin Level 4.6 g/dL (3.5-5.0); Alkaline Phosphatase 75 U/L (39-117); Aspartate Amino Transferase 46 U/L (5-37); Bilirubin Direct 0.2 mg/dL (0.0-0.5); Bilirubin Total 0.5 mg/dL (0.0-1.0)
[2024-05-16 10:47] LABS: Troponin-I High Sensitivity < 2.7 ng/L (<3.5-35.0)
[2024-05-16 13:44] LABS: Troponin-I High Sensitivity < 2.7 ng/L (<3.5-35.0)
[2024-05-16] MEDS: 0.9 % Sodium Chloride 1,000 ML 160 ML IVCONT ×3 (14:25→19:03)
[2024-05-16 16:17] VITALS: BP 142/65; PULSE 65; RESP 20; TEMP 36.4; O2SAT 97
[2024-05-16 19:50] VITALS: BP 171/79; PULSE 66; RESP 18; TEMP 36.3; O2SAT 98
[2024-05-17] MEDS: 0.9 % Sodium Chloride 1,000 ML 160 ML IVCONT ×2 (00:09→05:49)
[2024-05-17 03:49] VITALS: BP 173/68; PULSE 67; RESP 18; TEMP 36.3; O2SAT 98
[2024-05-17] MEDS: Omeprazole 20 MG CAPSULE.DR PO (05:49)
[2024-05-17 06:33] LABS: Anion Gap 12 (12-20); Blood Urea Nitrogen 11 mg/dL (9-16); Calcium 9.9 mg/dL (8.4-10.2); Carbon Dioxide 24 mmol/L (22-29); Chloride 111 mmol/L (96-108); Creatinine Clr Calc Pharmacy 95.6; Estimated Glomerular Filt Rate > 60; Glucose Random 95 mg/dL (60-115); Potassium 4.6 mmol/L (3.3-5.1); Sodium 142 mmol/L (135-145)
[2024-05-17 07:47] VITALS: BP 131/64; PULSE 52; RESP 14; TEMP 36.4; O2SAT 98
[2024-05-17] MEDS: Cyclobenzaprine HCl 5 MG TABLET PO (08:43)
[2024-05-17] MEDS: Enoxaparin Sodium 40 MG/0.4 ML SYRINGE SUBCUT (08:43)
[2024-05-17 09:06] LABS: TSH reflex Free T4 8.21 uIU/mL (0.32-4.0)
--- NOTE | 2024-05-17 09:46 | P.DS_ITS ---
DS: Providers Provider Date of Service: 05/17/24 Date of admission: 05/13/24 00:37 Date of discharge: 05/17/24 Primary care physician: Liat Martínez PA-C Consults: 05/13/24 03:55 Consult to Neurology Routine Consulting Provider: [facility] Reason for consultation: acute encephalopathy 05/13/24 12:00 Consult to Infectious Diseases Routine Consulting Provider: [facility] Reason for consultation: encephalitis 05/16/24 09:03 Consult to Nephrology Routine Consulting Provider: [facility] Reason for consultation: persistent CPK elevation DS: Diagnosis Discharge Diagnosis (1) Acute encephalopathy: Status: Resolved (2) Encephalitis: Status: Acute (3) Elevated CPK: Status: Acute (4) Elevated TSH: Status: Acute DS: Summary Hospital Course Hospital Course: From the history and physical by the admitting hospitalist, Queta Zuniga MD, 05/13/24: This is a 49-year-old male with no pertinent past medical history and not on prescription medications who was brought the emergency department for evaluation of altered mentation. History was obtained with the help of significant other at bedside. As per the ancee, patient returned home from work and was complaining of headache and cramps. Patient was complaining of diffuse cramps all over. The fiancee called 911 and patient was found to be altered as per EMS. In the time of my evaluation, patient is only oriented to self. He does not know that he has in the hospital. Patient does not remember if he went to work today or what he does for work. Is only complaining of headache. No sick contacts. No recent hiking or tick bite. No fever, chills, nausea, vomiting or diarrhea. Patient does not take any prescription medications. Only smokes marijuana. No IV drug use. No alcohol use. Unable to obtain complete review of systems. In the emergency department, WBC 14.4, lactic acid 3 and CK 1545. Lumbar puncture was performed in the ER. CT head and CT abdomen without any gait abnormality 49yo M with no chronic conditions other than GERD coming in with AMS and found to have SIRS [leukocytosis + tachypnea]. Lumbar puncture done with CSF showing 7 WBCs [75% PMNs, 15% lymphs] and slightly high protein of 51.5 [ULN 45 mg/dL] concerning for viral encephalitis. Notably the patient never had a fever. He was admitted to the medical-surgical unit with Neurology and Infectious Disease consultations. He was treated with IV acyclovir from 05/12 to 05/15. EEG showed bitemporal slowing occasionally with sharp transient suggestive of a bilateral encephalopathic process involving the temporal regions. No clearly epileptiform discharges are seen. Clinical correlation is suggested. MRI of the brain showed only nonspecific white matter changes. Rest of workup included: - meningitis/encephalitis PCR panel negative - CSF culture negative - respiratory pathogen PCR panel negative - MRI only with nonspecific WM changes - HIV negative - Lyme PCR negative; serology equivocal [Western blot pending] His mental status returned to normal and his headache and diffuse myalgias resolved. His diet was advanced and he felt much better. 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 He was counseled to avoid cannabis. He was also noted to have elevation in CPK as high as 1700. He was given IV isotonic saline with minimal improvement in CPK down to 1241. He has a remote history of cocaine abuse but not in many years. He does exercise strenulously and it is possible the CPK is elevated from this. Regardless, the elevation is well below the level at which there is risk of renal injury from pigment nephropathy. He was advised to rest from exercise for 1 week and repeat CPK in 1 week. TSH was noted to be elevated but free T4 normal; these should be repeated in 1 month. He should follow up with Neurology in 1 month, and his primary care doctor in 1 week. Time Attestation Discharge Coordination Time (in mins): 45 Quality: Safe Use of Opioids Does Pt have an Active Cancer Diagnosis on the Problem List?: No Quality: Stroke Does the patient have a stroke diagnosis?: No Physical Exam Vital Signs: Vital Signs: Last Vital Signs Temp 97.6 F 05/17/24 07:47 Pulse 52 05/17/24 07:47 Resp 14 05/17/24 07:47 BP 131/64 05/17/24 07:47 Pulse Ox 98 05/17/24 07:47 O2 Del Method Room Air 05/17/24 07:47 BMI result Body Mass Index 21.3 Gen: in no acute distress HEENT: sclera anicteric, moist mucus membranes Neck: supple Lungs: clear to auscultation bilaterally Heart: regular rate and rhythm, no murmurs Abd: soft, non-tender, non-distended Ext: no edema Skin: warm/well-perfused Neuro: alert and oriented x3, no focal findings Psych: appropriate affect DS: Data Data Completed and Pending Completed studies during hospitalization [Text1]: Laboratory Results WBC 10.8 X10*3/uL (4.8-10.8) 05/14/24 07:56 RBC 4.01 X10*6/uL (4.60-5.80) L 05/14/24 07:56 Hgb 12.7 g/dl (14.0-18.0) L 05/14/24 07:56 Hct 36.9 % (42.0-52.0) L 05/14/24 07:56 MCV 92.0 fL (80.0-98.0) 05/14/24 07:56 MCH 31.7 pg (27.0-33.0) 05/14/24 07:56 MCHC 34.4 g/dl (31.0-36.0) 05/14/24 07:56 RDW 14.7 % (11.0-16.0) 05/14/24 07:56 Plt Count 232 X10*3/uL (160-400) 05/14/24 07:56 MPV 10.8 fL (9.4-12.4) 05/14/24 07:56 Immature Gran % (Auto) 0.4 % (0.0-0.4) 05/13/24 04:11 Neut % (Auto) 71.5 % (45-73) 05/13/24 04:11 Lymph % (Auto) 16.8 % (20-40) L 05/13/24 04:11 Steele % (Auto) 10.8 % (2-11) 05/13/24 04:11 Eos % (Auto) 0.1 % (0-4) 05/13/24 04:11 Baso % (Auto) 0.4 % (0-2) 05/13/24 04:11 Lymph # (Auto) 2.3 X10*3/uL (1.2-4.9) 05/13/24 04:11 Steele # (Auto) 1.5 X10*3/uL (0.1-1.2) H 05/13/24 04:11 Eos # (Auto) 0.0 X10*3/uL (0.0-0.4) 05/13/24 04:11 Baso # (Auto) 0.1 X10*3/uL (0.0-0.2) 05/13/24 04:11 Abs Immat Gran (auto) 0.05 X10*3/uL (0.00-0.03) H 05/13/24 04:11 Absolute Neuts (auto) 9.7 x10*3/uL (2.0-8.3) H 05/13/24 04:11 Absolute Nucleated RBC 0.000 X10*3/uL (0.0-0.012) 05/14/24 07:56 Nucleated RBC % (auto) 0.0 /100WBC (0.0-0.2) 05/14/24 07:56 Hold Purple Top SEE NOTE 05/16/24 06:19 Sodium 142 mmol/L (135-145) 05/17/24 05:51 Potassium 4.6 mmol/L (3.3-5.1) 05/17/24 05:51 Chloride 111 mmol/L (96-108) H 05/17/24 05:51 Carbon Dioxide 24 mmol/L (22-29) 05/17/24 05:51 Anion Gap 12 (12-20) 05/17/24 05:51 BUN 11 mg/dL (9-16) 05/17/24 05:51 Creatinine 0.81 mg/dL (0.5-1.4) 05/17/24 05:51 Estim Creat Clear Calc 95.6 05/17/24 05:51 Estimated GFR > 60 05/17/24 05:51 Random Glucose 95 mg/dL (60-115) 05/17/24 05:51 Lactic Acid 3.0 mmol/L (0.5-2.0) H* 05/12/24 20:47 Lactic Acid F/U @ 2Hr 1.1 mmol/L (0.5-2.0) 05/12/24 23:38 Calcium 9.9 mg/dL (8.4-10.2) 05/17/24 05:51 Magnesium 2.5 mg/dL (1.6-2.6) 05/12/24 19:30 Total Bilirubin 0.5 mg/dL (0.0-1.0) 05/16/24 06:19 Direct Bilirubin 0.2 mg/dL (0.0-0.5) 05/16/24 06:19 AST 46 U/L (5-37) H 05/16/24 06:19 ALT 59 U/L (0-40) H 05/16/24 06:19 Alkaline Phosphatase 75 U/L (39-117) 05/16/24 06:19 Total Creatine Kinase 1241 U/L (38-174) H 05/17/24 05:51 Troponin I High Sens < 2.7 ng/L (<3.5-35.0) 05/16/24 13:12 C-Reactive Protein 0.67 mg/dL (< or = 0.50) H 05/16/24 06:19 Total Protein 8.0 g/dL (6.5-8.0) 05/16/24 06:19 Albumin 4.6 g/dL (3.5-5.0) 05/16/24 06:19 Lipase 26 U/L (8-78) 05/12/24 19:30 Vitamin B12 431 pg/mL (200-900) 05/13/24 07:39 Folate 12.7 ng/mL (> or = 4.0) 05/13/24 07:39 Procalcitonin 0.08 ng/mL 05/13/24 01:06 TSH 8.21 uIU/mL (0.32-4.0) H 05/17/24 05:51 Free T4 0.74 ng/dL (0.71-1.85) 05/17/24 05:51 Urine Color Yellow 05/12/24 23:38 Urine Appearance Clear 05/12/24 23:38 Urine pH 5.5 (5.0-9.0) 05/12/24 23:[address] 1.010 (1.005-1.025) 05/12/24 23:38 Urine Protein 30 (1+) mg/dL (Neg-Trace) H 05/12/24 23:38 Urine Glucose (UA) Negative mg/dL (Negative) 05/12/24 23:38 Urine Ketones 40 mg/dL (Negative) 05/12/24 23:38 Urine Blood Moderate (2+) (Negative) H 05/12/24 23:38 Urine Nitrite Negative (Negative) 05/12/24 23:38 Ur Leukocyte Esterase Negative (Negative) 05/12/24 23:38 Urine RBC 0-2 /HPF (0-2) 05/12/24 23:38 Urine WBC 0-5 /HPF (0-5) 05/12/24 23:38 Ur Squamous Epith Cells 0-2 /HPF (0-2) 05/12/24 23:38 Urine Bacteria None Seen (None Seen) 05/12/24 23:38 Hyaline Casts 0-2 /LPF (0-2) 05/12/24 23:38 CSF Tube Number 1 05/13/24 01:06 CSF Tube Number 2 05/13/24 01:06 CSF Tube Number 4 05/13/24 01:06 CSF Volume 1.0 ML 05/13/24 01:06 CSF Volume 1.0 ML 05/13/24 01:06 CSF Appearance CLEAR 05/13/24 01:06 CSF Appearance CLEAR 05/13/24 01:06 CSF Color COLORLESS 05/13/24 01:06 CSF Color COLORLESS 05/13/24 01:06 CSF WBC 3 MM*3 05/13/24 01:06 CSF WBC 7 MM*3 05/13/24 01:06 CSF RBC 0 MM*3 05/13/24 01:06 CSF RBC 0 MM*3 05/13/24 01:06 CSF Neutrophils 50 % 05/13/24 01:06 CSF Neutrophils 75 % 05/13/24 01:06 CSF Lymphocytes 10 % 05/13/24 01:06 CSF Lymphocytes 35 % 05/13/24 01:06 CSF Monocytes % 15 % 05/13/24 01:06 CSF Monocytes % 15 % 05/13/24 01:06 CSF Appearance (b) Clear, Colorless 05/13/24 01:06 CSF Glucose 73 mg/dL 05/13/24 01:06 CSF Total Protein 51.1 mg/dL (15-45) H 05/13/24 01:06 CSF C.neoform/gat PCR Not Detected (Not Detect.) 05/13/24 01:06 CSF CMV DNA (PCR) Not Detected (Not Detect.) 05/13/24 01:06 CSF Enterovirus (PCR) Not Detected (Not Detect.) 05/13/24 01:06 CSF E. coli K1 (PCR) Not Detected (Not Detect.) 05/13/24 01:06 CSF H. influenzae (PCR) Not Detected (Not Detect.) 05/13/24 01:06 CSF HSV I (PCR) Not Detected (Not Detect.) 05/13/24 01:06 CSF HSV II (PCR) Not Detected (Not Detect.) 05/13/24 01:06 CSF HHV 6 (PCR) Not Detected (Not Detect.) 05/13/24 01:06 CSF L.monocytogenes PCR Not Detected (Not Detect.) 05/13/24 01:06 CSF N. meningitidis PCR Not Detected (Not Detect.) 05/13/24 01:06 CSF Parechovirus (PCR) Not Detected (Not Detect.) 05/13/24 01:06 CSF S. agalactiae (PCR) Not Detected (Not Detect.) 05/13/24 01:06 CSF S. pneumoniae (PCR) Not Detected (Not Detect.) 05/13/24 01:06 CSF VZV (PCR) Not Detected (Not Detect.) 05/13/24 01:06 Urine Opiates Screen POSITIVE (Not Detect) H 05/12/24 23:38 Ur Buprenorphine Scrn Not Detected ng/mL (Not Detect) 05/12/24 23:38 Ur Oxycodone Screen Not Detected ng/mL (Not Detect) 05/12/24 23:38 Urine Methadone Screen Not Detected ng/mL (Not Detect) 05/12/24 23:38 Urine Fentanyl Screen Not Detected (Not Detect) 05/12/24 23:38 Ur Barbiturates Screen Not Detected (Not Detect) 05/12/24 23:38 Ur Phencyclidine Scrn Not Detected (Not Detect) 05/12/24 23:38 Ur Amphetamines Screen Not Detected (Not Detect) 05/12/24 23:38 U Benzodiazepines Scrn Not Detected (Not Detect) 05/12/24 23:38 Urine Cocaine Screen Not Detected (Not Detect) 05/12/24 23:38 U Marijuana (THC) Screen POSITIVE (Not Detect) H 05/12/24 23:38 Respiratory Panel Higgins See Note 05/13/24 16:53 Adenovirus (Rapid PCR) Not Detected (Not Detect.) 05/13/24 16:53 A.phagocytophil DNA PCR NOT DETECTED (NOT DETECTED) 05/13/24 12:26 Babesia microti DNA PCR NOT DETECTED (NOT DETECTED) 05/13/24 12:26 B.pert (TEM-PCR) Not Detected (Not Detect.) 05/13/24 16:53 B.parapertussis DNA PCR Not Detected (Not Detect.) 05/13/24 16:53 Borrelia sp DNA (PCR) NOT DETECTED (NOT DETECTED) 05/13/24 12:26 Lyme Screen IgG & IgM EQUIVOCAL 05/13/24 12:26 Lyme Progressive Test 0.90 index H 05/13/24 12:26 Borrelia miyamotoi (PCR) NOT DETECTED (NOT DETECTED) 05/13/24 12:26 C. pneumoniae DNA (PCR) Not Detected (Not Detect.) 05/13/24 16:53 Coronavirus OC43 (PCR) Not Detected (Not Detect.) 05/13/24 16:53 Coronavirus HKU1 (PCR) Not Detected (Not Detect.) 05/13/24 16:53 Coronavirus 229E (PCR) Not Detected (Not Detect.) 05/13/24 16:53 COVID-19 (YUDITH) Negative (Negative) 05/13/24 21:21 COVID-19 Clin Com See Note 05/13/24 21:21 Coronavirus NL63 (PCR) Not Detected (Not Detect.) 05/13/24 16:53 E.chaffeensis DNA (PCR) NOT DETECTED (NOT DETECTED) 05/13/24 12:26 HIV 1&2 Ab/P24 Ag 4thGn Nonreactive (Nonreactive) 05/13/24 12:26 Human Metapneumovir PCR Not Detected (Not Detect.) 05/13/24 16:53 Influenza A (RT-PCR) Not Detected (Not Detect.) 05/13/24 16:53 Influenza B (RT-PCR) Not Detected (Not Detect.) 05/13/24 16:53 M. pneumoniae (PCR) Not Detected (Not Detect.) 05/13/24 16:53 Parainfluenza 1 (PCR) Not Detected (Not Detect.) 05/13/24 16:53 Parainfluenza 2 (PCR) Not Detected (Not Detect.) 05/13/24 16:53 Parainfluenza 3 (PCR) Not Detected (Not Detect.) 05/13/24 16:53 Parainfluenza 4 (PCR) Not Detected (Not Detect.) 05/13/24 16:53 RSV (PCR) Not Detected (Not Detect.) 05/13/24 16:53 Entero/Rhino (PCR) Not Detected (Not Detect.) 05/13/24 16:53 SARS-CoV-2 RNA (RT-PCR) Not Detected (Not Detect.) 05/13/24 16:53 Tick-borne Disease PCR SEE NOTE 05/13/24 12:26 Impressions Abdomen/Pelvis CT 05/12/24 20:01 IMPRESSION: Examination limited due to patient significant motion on 2 separate attempts at scanning. No acute intra-abdominal process seen however. Head CT 05/12/24 20:39 IMPRESSION: No acute intracranial process seen. Brain MRI 05/13/24 20:11 IMPRESSION: 1. No acute intracranial abnormalities. No abnormal intracranial enhancement. 2. Mild nonspecific white matter changes. Discharge Plan Discharge Anticipated Discharge Date/Time: 05/17/24 09:43 Patient Disposition: Home, Self-Care Discharge Diagnosis: encephalopathy elevated CPK elevated TSH Referrals: Liat Martínez PA-C [Primary Care Provider] - 1 Week Hilda Vences MD [Physician] - 1 Month Discharge Medications: Continued omeprazole 20 mg Capsule,Delayed Release(Dr/Ec) 20 mg PO DAILY@0630 Discharge Orders: Discharge Order (Routine); Ordered 05/17/24 Ordered By: Teodoro Bansal Diet: Advance to usual diet Activity on Discharge: As tolerated Stand Alone Forms: Patient Portal Discharge page Print Language: [place]se Other Ambulatory Orders: Creatine Kinase Total (Routine) Timeframe: 1 Week Facility: [facility] - Location: Laboratory Ordered By: Teodoro Bansal TSH reflex Free T4 (Routine) Timeframe: 1 Month Facility: [facility] - Location: Laboratory Ordered By: Teodoro Bansal Care Plan Goals: neuromuscular health Health Concerns: encephalopathy elevated CPK elevated TSH Plan of Treatment: hold off on exercise for 1 week and repeat CPK level in 1 week follow up results of Lyme Western Blot [screening serology equivocal; PCR negative] avoid marijuana repeat TSH/reflex free T4 in 1 month Please follow up with your primary care doctor within 1 week. Return to the hospital if you experience recurrent or worsening symptoms. Follow up with neurology at [facility] in 1 month. Assessment: See Discharge Summary. Discharge Date/Time: 05/17/24 10:42
[2024-05-17 09:50] LABS: Free T4 (Free Thyroxine) 0.74 ng/dL (0.71-1.85)
--- NOTE | 2024-05-17 10:06 | MHC.CM.PN ---
PT WILL DC HOME TODAY WITH NO SERVICES VIA PRIVATE TRANSPORT
--- NOTE | 2024-05-17 11:20 | PM.EVENT ---
Event Note Date of Service: 05/17/24 Event Note: Consult requested for elevated CPK Serum creatinine has been normal Patient has been discharged already I will arrange for out patient follow up. Thank you Time Spent With Patient Time: Total time managing care of this patient today ____ minutes.
[2024-05-21 19:38] LABS: 18 KD (IgG) Band NON-REACTIVE; 23 KD (IgG) Band NON-REACTIVE; 23 KD (IgM) Band NON-REACTIVE; 28 KD (IgG) Band NON-REACTIVE; 30 KD (IgG) Band NON-REACTIVE; 39 KD (IgM) Band NON-REACTIVE; 39KD (IgG) Band NON-REACTIVE; 41 KD (IgM) Band NON-REACTIVE; 41KD (IgG) Band NON-REACTIVE; 45 KD (IgG) Band NON-REACTIVE; 58 KD (IgG) Band NON-REACTIVE; 66 KD (IgG) Band NON-REACTIVE; 93 KD (IgG) Band NON-REACTIVE; Lyme IgG Blot Interp NEGATIVE (NEGATIVE); Lyme IgM Blot Interp NEGATIVE (NEGATIVE)
[2024-05-22 17:32] LABS: Lyme IgG CSF Immunoblot NO BANDS DETECTED; Lyme IgM CSF Immunoblot NO BANDS DETECTED
== END 2024-05-17 10:42 | disposition home or self-care (01) | DRG 50 ==
LOC: HO.ED 19:37 → HO.EDOVER 05-13 00:49 → HO.S3 05-13 20:03
PROVIDERS: Admitting Provider Student in an Organized Health Care Education/Training Program; Emergency Provider Internal Medicine; PCP Physician Assistant; Visit Provider Family Medicine
DX: A86 Unspecified viral encephalitis (principal); G93.49 Other encephalopathy; E87.1 Hypo-osmolality and hyponatremia; M62.82 Rhabdomyolysis; K21.9 Gastro-esophageal reflux disease without esophagitis; F12.90 Cannabis use, unspecified, uncomplicated; Z20.822 Contact with and (suspected) exposure to COVID-19; Z79.899 Other long term (current) drug therapy
CPT/HCPCS: 36415; 70450; 70553; 74176; 80048; 80053; 80076; 80307; 81001; 82550; 82607; 82746; 82945; 83605; 83690; 83735; 84145; 84157; 84439; 84443; 84484; 85025; 85027; 86140; 86617; 86618; 87015; 87040; 87070; 87205; 87389; 87468; 87469; 87478; 87483; 87484; 87633; 87635; 87798; 89051; 93005; 95816; 99285; A9585; J0133; J0696; J1650; J1885; J2270; J2405; J7120

== ENCOUNTER 2024-05-13 00:37 | Outpatient (BNV) | payer BC, SELFPAY | END 2024-05-16 10:09 | PROVIDERS: Admitting Provider Student in an Organized Health Care Education/Training Program; Emergency Provider Internal Medicine; PCP Physician Assistant; Visit Provider Internal Medicine | DX: R00.1 Bradycardia, unspecified (principal) | CPT/HCPCS: 93010 ==

== ENCOUNTER → 2024-05-13 00:37 | Outpatient (BNV) | payer BC, SELFPAY | PROVIDERS: Admitting Provider Student in an Organized Health Care Education/Training Program; Emergency Provider Internal Medicine; Visit Provider Internal Medicine | DX: G93.40 Encephalopathy, unspecified (principal) | CPT/HCPCS: 99222 ==

== ENCOUNTER → 2024-05-13 00:37 | Outpatient (BNV) | payer BC, SELFPAY | PROVIDERS: Admitting Provider Student in an Organized Health Care Education/Training Program; Emergency Provider Internal Medicine; Visit Provider Student in an Organized Health Care Education/Training Program | DX: G93.40 Encephalopathy, unspecified (principal); G04.90 Encephalitis and encephalomyelitis, unspecified; R74.8 Abnormal levels of other serum enzymes; R79.89 Other specified abnormal findings of blood chemistry | CPT/HCPCS: 99223; 99232; 99239; 99499 ==

== ENCOUNTER → 2024-05-13 00:37 | Outpatient (BNV) | payer BC, SELFPAY | PROVIDERS: Admitting Provider Student in an Organized Health Care Education/Training Program; Emergency Provider Internal Medicine; Visit Provider Psychiatry & Neurology Neurology | DX: A86 Unspecified viral encephalitis (principal) | CPT/HCPCS: 99222; 99232 ==